=== PATIENT | male | born 1945 | race Caucasian/White ===

== ENCOUNTER → 2019-11-13 11:26 | Outpatient (CLI) | payer MEDICARE, BC, SELFPAY ==
[2019-11-13 12:57] LABS: PSA,Total- Diagnostic 8.26 ng/mL (0.0-4.0)
== END ==
PROVIDERS: PCP Family Medicine; Referring Provider Nurse Practitioner Adult Health; Visit Provider Nurse Practitioner Adult Health
DX: R97.20 Elevated prostate specific antigen [PSA] (principal)
CPT/HCPCS: 36415; 84153

== ENCOUNTER 2020-03-17 15:11 | Emergency (ER) | payer MEDICARE, BC, SELFPAY ==
[2020-03-17 15:12] VITALS: BP 142/86; PULSE 75; RESP 18; TEMP 36.3; O2SAT 98; BMI 23.0
--- NOTE | 2020-03-17 15:31 | CT_ITS ---
STUDY: CT BRAIN WITHOUT CONTRAST REASON FOR EXAM: Male, 75 years old. FALL TODAY, STRUCK HEAD, LAC TO RT SIDE OF FACE, HTN, CHRONIC APHASIA RADIATION DOSAGE (If Supplied By Facility): CTDIvol = ( 44.99 ) mGy, DLP = ( 796.11 ) mGycm TECHNIQUE: Transaxial CT imaging of the brain was performed without administration of intravenous contrast material. Individualized dose optimization techniques were used for this CT. COMPARISON: No relevant priors. FINDINGS: Normal soft tissue structures. Normal calvarium. There is mild cerebral atrophy with widening of the extra-axial spaces and ventricular dilatation. There are areas of decreased attenuation within the white matter tracts of the supratentorial brain, consistent with microvascular disease changes. Normal basal ganglia and thalami. Normal brainstem. Normal cerebellum. There is no intracranial hemorrhage. There are no findings of an acute ischemic infarction. Normal visualized paranasal sinuses. CT/Brain/Head without Contrast IMPRESSION: Chronic involutional changes of the brain. Electronically Signed: Sanket Powell MD at 16:16 EDT , Service support ,
--- NOTE | 2020-03-17 15:32 | ED.VIS.GEN ---
History of Present Illness Chief Complaint: Fall Informant: Patient, Family Onset: Today Current Severity: Mild Maximum Severity: Mild Narrative: Patient presents after fall. Patient lost his balance when getting off the commode and fell into the tub where a drying rack was set up. He has 2 lacerations to the right side of his face and an intraoral laceration. He denies loss of consciousness. states has been acting his normal self. He does have a history of chronic aphasia. - Past Medical History (1) Aphasia Status: Chronic (2) Hypertension Status: Chronic (3) High cholesterol Status: Chronic (4) GERD (gastroesophageal reflux disease) Status: Chronic Past Medical History - Allergies and Home Meds Allergies/Adverse Reactions: Allergies No Known Allergies Allergy (Verified 03/17/20 15:12) Primary Care Physician: Josef Silverman MD [Primary Care Provider] - Prior records reviewed: Yes Lives: Spouse/ Significant Other Review of Systems General: Denies: Chills, Fever Eyes: Denies: Visual changes - bilaterally ENT: Denies: Bilateral ear pain Cardiovascular: Denies: Chest pain Respiratory: Denies: Dyspnea Gastrointestinal: Denies: Abdominal pain, Nausea, Vomiting Genitourinary: Denies: Dysuria Musculoskeletal: Denies: Extremity Pain Skin: Reports: Wounds Neurological: Denies: Headache Hematologic: Denies: Easy bruising, Easy bleeding Allergy: Denies: Uticaria Physical Exam Vital Signs/Narrative: Vital Signs Temp Pulse Resp BP Pulse Ox 03/17/20 15:12 97.4 F L 75 18 142/86 H 98 Inital Vital Signs reviewed: Yes General: Well nourished, Well developed Head: Normocephalic ENT: Moist mucous membranes, - - 2 cm linear superficial laceration to the lateral right eyebrow. 3 cm linear deep abrasion over the right maxilla. Abrasion to the inner surface of the lower lip. Teeth are stable. Neck: Supple, - - No C-spine tenderness. Cardiovascular: Regular rate, Regular rhythm Respiratory: No distress, CTA bilaterally Abdomen: Soft, Nontender Extremities: Nontender Skin: - - Facial lacerations as noted above Neurological: Alert, Oriented x3, Normal Strength, Normal Sensation Psychological: Normal affect Diagnostic/Tx/Re-eval Impressions Brain CT 03/17/20 15:31 IMPRESSION: Chronic involutional changes of the brain. Electronically Signed: Sanket Powell MD at 16:16 EDT , Service support , 03/17/20 15:31 CT Head [Brain/Head without Contrast] [CT] Stat - Medical Decision Making Tetanus shot is up-to-date. The abrasions and superficial laceration on the right side of face are cleansed and sealed with Dermabond. ED Disposition - Plan for ED Patient: Disposition: Home or Assisted Living Diagnosis: Fall, Facial laceration, Intraoral laceration Instructions: ED Laceration Facial Skin Glue, ED Mechanical Fall, ED Laceration Mouth Referrals: Josef Silverman MD [Primary Care Provider] - As Needed
== END 2020-03-17 16:51 | disposition home or self-care (01) ==
PROVIDERS: Emergency Provider Emergency Medicine; PCP Family Medicine
DX: S01.111A Laceration without foreign body of right eyelid and periocular area, initial encounter (principal); S01.512A Laceration without foreign body of oral cavity, initial encounter; S01.81XA Laceration without foreign body of other part of head, initial encounter; I10 Essential (primary) hypertension; K21.9 Gastro-esophageal reflux disease without esophagitis; W26.8XXA Contact with other sharp object(s), not elsewhere classified, initial encounter; Y93.89 Activity, other specified; Y92.002 Bathroom of unspecified non-institutional (private) residence as the place of occurrence of the external cause; Y99.8 Other external cause status
CPT/HCPCS: 12013; 70450; 99282

== ENCOUNTER → 2020-06-03 08:51 | Outpatient (CLI) | payer MEDICARE, BC, SELFPAY ==
[2020-06-03 09:48] LABS: PSA,Total- Diagnostic 7.87 ng/mL (0.0-4.0)
== END ==
PROVIDERS: PCP Family Medicine; Referring Provider Nurse Practitioner Adult Health; Visit Provider Nurse Practitioner Adult Health
DX: R97.20 Elevated prostate specific antigen [PSA] (principal)
CPT/HCPCS: 36415; 84153

== ENCOUNTER 2020-07-11 15:08 | Emergency (ER) | payer MEDICARE, BC, SELFPAY ==
[2020-07-09 09:58] VITALS: BMI 25.9
[2020-07-11 15:09] VITALS: BP 123/88; PULSE 75; RESP 18; TEMP 36.3; O2SAT 96; BMI 20.9
--- NOTE | 2020-07-11 15:28 | CT_ITS ---
STUDY: CT BRAIN WITHOUT CONTRAST REASON FOR EXAM: Male, 75 years old. MECHANICAL FALL IN BATHTUB, LAC TO TOP OF HEAD. Best images. Pt unable to lay head down RADIATION DOSAGE (If Supplied By Facility): CTDIvol = ( 29.71 ) mGy, DLP = ( 604.65 ) mGycm TECHNIQUE: Transaxial CT imaging of the brain was performed without administration of intravenous contrast material. Individualized dose optimization techniques were used for this CT. COMPARISON: Comparison is made with prior study date 03/17/2020. FINDINGS: Normal soft tissue structures. Normal calvarium. There is mild cerebral atrophy with widening of the extra-axial spaces and ventricular dilatation. There are areas of decreased attenuation within the white matter tracts of the supratentorial brain, consistent with microvascular disease changes. Normal basal ganglia and thalami. Normal brainstem. There is mild cerebellar atrophy. There is no intracranial hemorrhage. There are no findings of an acute ischemic infarction. Normal visualized paranasal sinuses. CT/Brain/Head without Contrast IMPRESSION: Chronic involutional changes of the brain. Electronically Signed: Gera Matta MD at 15:55 EST , Service support ,
--- NOTE | 2020-07-11 15:30 | ED.VISSUMM ---
- ER Visit Summary Date of Service: 07/11/20 Chief Complaint: Fall, scalp laceration History of Present Illness: The patient is a 75 M who presents after a fall. He lost his balance and fell in the bathtub. Family member believes that he hit his head on the faucet of the bathtub. No LOC. He claims of no neck pain. He did sustain a laceration to the scalp. Bleeding is controlled. He is on a baby aspirin but no other blood thinning medications. 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 He denies any chest pain, shortness of breath, dizziness or lightheadedness before the fall. Physical Examination: Vital signs reviewed. HEENT exam shows a 7 cm L-shaped scalp laceration to the top part of the scalp. Heart is regular rate and rhythm without murmurs. Lungs are clear to auscultation. Abdomen is soft and nontender. Extremities reveal no edema. Skin exam normal. Neurologic exam is a GCS of 13 where he loses points for his verbal communication which is his baseline but otherwise his neurologic exam is normal. Test Results: CT scan of the head shows chronic changes. Emergency Department Course and Treatment: The patient had laceration repair. The wound was cleansed with chlorhexidine. Lidocaine was used to anesthetize the area. 7 stuart were used to close this wound. He will have these out in 1 week. They will use Tylenol for pain at home. Treatment Plan: [] Disposition: Discharge Impression: Laceration, 7 cm Laceration repair by ED physician This note was generated with [employer] dictation software. It may contain incorrect words, spelling, and punctuation that were not noted in review of the chart prior to signing ED Disposition - Plan for ED Patient: Disposition: Home or Assisted Living Instructions: ED Laceration: All Closures Referrals: Josef Silverman MD [Primary Care Provider] -
[2020-07-11] MEDS: Lidocaine 1% (20 ml mdv) 20 ML Vial INFILT (16:10)
[2020-07-11 16:36] VITALS: BP 146/83; PULSE 74; RESP 18; TEMP 35.5
== END 2020-07-11 16:52 | disposition home or self-care (01) ==
PROVIDERS: Emergency Provider Emergency Medicine; PCP Family Medicine
DX: S01.01XA Laceration without foreign body of scalp, initial encounter (principal); I10 Essential (primary) hypertension; E78.00 Pure hypercholesterolemia, unspecified; Z79.899 Other long term (current) drug therapy; W26.8XXA Contact with other sharp object(s), not elsewhere classified, initial encounter; Y93.E1 Activity, personal bathing and showering; Y92.002 Bathroom of unspecified non-institutional (private) residence as the place of occurrence of the external cause; Y99.8 Other external cause status
CPT/HCPCS: 12002; 70450; 99283

== ENCOUNTER → 2020-07-29 10:53 | Outpatient (CLI) | payer MEDICARE, BC, SELFPAY ==
[2020-07-09 09:58] VITALS: BMI 25.9
[2020-07-11 15:09] VITALS: BMI 20.9
--- NOTE | 2020-07-29 10:54 | MRI_ITS ---
STUDY: MRI BRAIN WITH AND WITHOUT CONTRAST REASON FOR EXAM: Male, 75 years old. DEMENTIA, PARKINSON''S, PPA TECHNIQUE: Standardized multiplanar fat and water weighted pulse sequences were obtained. 14ml IV Dotarem was administered for the contrast portion of the examination. COMPARISON: CT to FINDINGS: There is moderate cerebral atrophy with widening of the extra-axial spaces and ventricular dilatation. There are multiple white matter hyperintensities, distributed throughout the deep white matter tracts of the cerebral hemispheres, consistent with moderate chronic white matter ischemic changes. There is no evidence for recent intracranial ischemia or other cause of cytotoxic edema on diffusion weighted imaging (DWI). Normal T2* images of the brain without demonstrated susceptibility artifact. There is no demonstrated hemosiderin stain. Midbrain iron stores are depleted which can be seen in Parkinson''s disease. Normal bilateral basal ganglia. Normal thalami. There is no extra-axial fluid accumulation. Normal flow voids within the major intracranial circulation suggesting patency by spin echo criteria. Normal venous enhancement. There is no enhancing intra-axial or extra-axial abnormality. Normal sella turcica, pituitary gland, infundibular stalk, optic chiasm and hypothalamus. Normal tectal plate and pineal gland. Normal midbrain, gideon and medulla. Normal cerebellum. Normal basal cisterns. 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 Normal bilateral internal auditory canals. No demonstrated orbital abnormality, within the constraints of a routine brain study. Normal visualized paranasal sinuses. Normal calvarium and skull base. Normal visualized soft tissue structures. Normal visualized upper cervical spine. MRI/Brain W/WO Contrast IMPRESSION: 1. Involutional changes of the brain, as described above. No acute infarct. 2. Midbrain iron stores are depleted which can be seen in Parkinson''s disease. Electronically Signed: Dontae Chow MD at 12:59 EST Tel , Service support ,
[2020-07-29 12:50] LABS: CREATININE FINGERSTICK 0.8 mg/dL (0.70-1.30)
== END ==
PROVIDERS: PCP Family Medicine; Referring Provider Psychiatry & Neurology Neurology; Visit Provider Psychiatry & Neurology Neurology
DX: G20 Parkinson's disease (principal); G31.01 Pick's disease; F02.80 Dementia in other diseases classified elsewhere, unspecified severity, without behavioral disturbance, psychotic disturbance, mood disturbance, and anxiety
CPT/HCPCS: 70553; A9575

== ENCOUNTER → 2020-08-12 09:06 | Outpatient (CLI) | payer MEDICARE, BC, SELFPAY ==
[2020-08-12 10:54] LABS: Vitamin B12 426 pg/mL (211-911)
[2020-08-12 11:06] LABS: Thyroid Stim Hormone (TSH) 1.49 uIU/mL (0.358-3.74)
[2020-08-15 07:07] LABS: Free Kappa Light Chains 17.1 mg/L (3.3-19.4); Free Lambda Light Chains 15.7 mg/L (5.7-26.3)
[2020-08-15 09:51] LABS: Vitamin B1, Thiamine 121.1 nmol/L (66.5-200.0)
== END ==
PROVIDERS: PCP Family Medicine; Referring Provider Psychiatry & Neurology Neurology; Visit Provider Psychiatry & Neurology Neurology
DX: F03.90 Unspecified dementia, unspecified severity, without behavioral disturbance, psychotic disturbance, mood disturbance, and anxiety (principal); G62.9 Polyneuropathy, unspecified; I10 Essential (primary) hypertension
CPT/HCPCS: 36415; 82607; 82746; 83883; 84425; 84443

== ENCOUNTER 2020-09-27 10:47 | Emergency (ER) | payer MEDICARE, BC, SELFPAY ==
[2020-08-22 16:38] VITALS: BMI 25.9
[2020-09-27 10:48] VITALS: BP 151/71; PULSE 96; RESP 16; TEMP 36.6; O2SAT 92; BMI 21.9
--- NOTE | 2020-09-27 11:04 | CT_ITS ---
STUDY: CT BRAIN WITHOUT CONTRAST REASON FOR EXAM: Male, 75 years old. Fall RADIATION DOSAGE (If Supplied By Facility): CTDIvol = ( 34.70 ) mGy, DLP = ( 656.48 ) mGycm TECHNIQUE: Transaxial CT imaging of the brain was performed without administration of intravenous contrast material. Individualized dose optimization techniques were used for this CT. COMPARISON: Comparison is made with prior study dated 07/11/2020. FINDINGS: Normal soft tissue structures. Normal calvarium. There is mild cerebral atrophy with widening of the extra-axial spaces and ventricular dilatation. There are areas of decreased attenuation within the white matter tracts of the supratentorial brain, consistent with microvascular disease changes. Normal basal ganglia and thalami. Normal brainstem. There is mild cerebellar atrophy. There is no intracranial hemorrhage. There are no findings of an acute ischemic infarction. Atherosclerotic calcification of the vertebral arteries and cavernous portions of the internal carotid arteries bilaterally. Normal visualized paranasal sinuses. CT/Brain/Head without Contrast IMPRESSION: Chronic involutional changes of the brain. Electronically Signed: Gera Matta MD at 11:54 EDT , Service support ,
--- NOTE | 2020-09-27 11:51 | ED.VISSUMM ---
- ER Visit Summary Date of Service: 09/27/20 Chief Complaint: Fall History of Present Illness: The patient is a [address] Silverman. He has a history of Parkinson's disease and balance problems. Reports that this morning his walker tipped and he fell and hit his head on the doorway. He did not have a loss of consciousness. He is not on anticoagulants. His tetanus is up-to-date. Patient denies any neck, back, shoulder, wrist, or hip pain. His history is limited by he severe expressive aphasia. Physical Examination: Vitals: Stable. Afebrile. Head: 3 cm laceration to the left occipital region. No active bleeding Neck: No vertebral tenderness. Full ROM without difficulty. Cleared by NEXUS criteria. Back: No vertebral tenderness. General: A&O x 3. NAD. Cardiovascular exam: Regular rate and rhythm, no murmur, rub or gallop. Respiratory exam: Chest nontender. No crepitus. Clear to auscultation bilaterally. No wheezes or stridor. Abdominal exam: Soft, nontender, nondistended, normal bowel sounds. No pain in RUQ or LUQ specifically. No peritoneal signs. Extremity: Atraumatic. No pain with range of motion. Test Results: Clinical Impression(s) from Imaging Studies Brain CT 09/27/20 11:04 IMPRESSION: Chronic involutional changes of the brain. Electronically Signed: Gera Matta MD at 11:54 EDT , Service support , Emergency Department Course and Treatment: Patient refused pain medications. He had his wound anesthetized and repaired. He tolerated this well. Treatment Plan: Patient be discharged instructions follow-up his primary care physician in 7 to 10 days for staple removal. Return to the emergency department for any worsening symptoms. Disposition: To home in improved and stable condition. Impression: 1. Fall. 2. Scalp laceration, 3 cm, repaired. Procedure note: Wound was cleansed with chlorhexidine soap. Anesthetized with 1% lidocaine without epinephrine. Copiously irrigated with normal saline. Wound was explored there is no foreign material present. It was closed with 4 stuart. The patient tolerated it well. This note was generated with Inway Studiosation software. It may contain incorrect words, spelling, and punctuation that were not noted in review of the chart prior to signing ED Disposition - Plan for ED Patient: Disposition: Home or Assisted Living Instructions: ED Laceration: All Closures Referrals: Josef Silverman MD [Primary Care Provider] - 7 Days for suture removal
[2020-09-27] MEDS: Lidocaine 1% (20 ml mdv) 20 ML Vial INFILT (12:17)
== END 2020-09-27 12:31 | disposition home or self-care (01) ==
LOC: ED 11:36
PROVIDERS: Emergency Provider Emergency Medicine; PCP Family Medicine
DX: S01.01XA Laceration without foreign body of scalp, initial encounter (principal); G20 Parkinson's disease; I10 Essential (primary) hypertension; W01.198A Fall on same level from slipping, tripping and stumbling with subsequent striking against other object, initial encounter; Y93.01 Activity, walking, marching and hiking; Y92.009 Unspecified place in unspecified non-institutional (private) residence as the place of occurrence of the external cause; Y99.8 Other external cause status
CPT/HCPCS: 12002; 70450; 99284

== ENCOUNTER 2020-10-18 10:54 | Emergency (ER) | payer MEDICARE, BC, SELFPAY ==
[2020-10-18] VITALS (10 sets, daily range): BP systolic 111–136; BP diastolic 63–77; PULSE 56–99; RESP 15–22; TEMP 36.3–36.6; O2SAT 96–98; BMI 25.9; BMI 22.3
--- NOTE | 2020-10-18 11:02 | CT_ITS ---
STUDY: CT BRAIN WITHOUT CONTRAST REASON FOR EXAM: Male, 75 years old. altered mental status RADIATION DOSAGE (If Supplied By Facility): CTDIvol = ( 44.99 ) mGy, DLP = ( 1862.18 ) mGycm TECHNIQUE: Transaxial CT imaging of the brain was performed without administration of intravenous contrast material. Individualized dose optimization techniques were used for this CT. COMPARISON: CT head 09/27/2020 FINDINGS: Normal soft tissue structures. Normal calvarium. There is mild cerebral atrophy with widening of the extra-axial spaces and ventricular dilatation. There are areas of decreased attenuation within the white matter tracts of the supratentorial brain, consistent with microvascular disease changes. Normal basal ganglia and thalami. Normal brainstem. Normal cerebellum. There is no intracranial hemorrhage. There are no findings of an acute ischemic infarction. Normal visualized paranasal sinuses. CT/Brain/Head without Contrast IMPRESSION: Chronic involutional changes of the brain. Electronically Signed: Sally Sanches MD at 11:51 EDT Tel , Service support ,
--- NOTE | 2020-10-18 11:02 | EKG12_ITS ---
Test Reason : OD Blood Pressure : / mmHG Vent. Rate : 063 BPM Atrial Rate : 063 BPM P-R Int : 192 ms QRS Dur : 096 ms QT Int : 394 ms P-R-T Axes : 055 012 047 degrees QTc Int : 403 ms Normal sinus rhythm Normal ECG Confirmed by PEGGY ROGEL MD ([id number]), development editor ANGELICA RODRIGUEZ ([id number]) on 10/22/2020 9:31:09 AM Referred By: LLOYD Confirmed By:PEGGY ROGEL MD
--- NOTE | 2020-10-18 11:14 | EX.ED.VIS.PS ---
HPI HPI - Psych History of Present Illness Chief Complaint: Overdose Informant: patient, spouse/S.O. and EMS Onset/Context/Timing Onset: Today Narrative Narrative: Patient brought in by EMS after intentional ingestion at home. Patient has a history of dementia, Parkinson's, and expressive aphasia. Patient's came home around 945 after a trip to the grocery store and found the patient more difficult to arouse sitting in his chair. She did find a kitchen cabinet open where they keep the medications. Patient reportedly was able to tell her that he had taken several pills in an attempt to hurt himself. At this time we do not know exactly how many pills were taken and what the medications were. believes he may have ingested 6 to 8 tablets of Tylenol. He is also prescribed amlodipine, atorvastatin, omeprazole, aspirin, Proscar, Mobic. [facility] Medical History (Updated 10/18/20 @ 11:[address] Mona Allen MD) Arthritis Cataracts, bilateral Dementia GERD (gastroesophageal reflux disease) High cholesterol Hypertension Parkinsonism Primary progressive aphasia Prostate disorder Seasonal allergies Home Medications amlodipine 5 mg tablet 5 mg PO DAILY tab 07/05/20 [History Last Taken Unknown] aspirin 81 mg tablet,delayed release 81 mg PO DAILY tab 07/05/20 [History Last Taken Unknown] atorvastatin 10 mg tablet 10 mg PO DAILY tab 07/05/20 [History Last Taken Unknown] finasteride 5 mg tablet 5 mg PO DAILY 07/05/20 [History Last Taken Unknown] meloxicam 15 mg tablet 15 mg PO DAILY 07/05/20 [History Last Taken Unknown] omeprazole magnesium 20 mg tablet,delayed release 20 mg PO DAILY tab 07/05/20 [History Last Taken Unknown] tamsulosin 0.4 mg capsule 0.4 mg PO DAILY cap 07/05/20 [History Last Taken Unknown] donepezil 10 mg tablet 10 mg PO QHS #30 tablet 09/30/20 [Rx Last Taken Unknown] donepezil 5 mg tablet 5 mg PO QHS #30 tablet 09/30/20 [Rx Last Taken Unknown] carbidopa 25 mg-levodopa 100 mg tablet 1 tab PO TID #90 tab 10/15/20 [Rx Last Taken Unknown] Allergy/AdvReac Type Severity Reaction Status Date / Time No Known Allergies Allergy Verified 09/30/20 14:45 Family History Father Alcoholism Grandfather Alcoholism Mother CVA (cerebral vascular accident), Onset Age: 84 Other Arthritis Hypertension Surgical History History of tonsillectomy Social History Smoking Status: Former smoker how long ago did patient quit smoking: Quit in 1976 alcohol intake: current alcohol intake frequency: holidays/special occasions only substance use type: does not use ROS ROS ED Review of Systems ROS Unobtainable: other Details: Patient with expressive aphasia at baseline. He is able to answer okay or not to simple questions. Constitutional Constitutional ED: Denies chills or fever(s) Eyes Eyes: Denies change in vision ENT ENT ED: Denies sore throat Cardiovascular Cardiovascular: Denies chest pain Respiratory/Chest Respiratory/Chest: Denies cough or dyspnea Gastrointestinal Gastrointestinal: Denies abdominal pain, diarrhea, nausea or vomiting Genitourinary Genitourinary ED: Denies dysuria Musculoskeletal Musculoskeletal: Denies back pain Integumentary Denies rash Neurologic Neurologic: Denies headache(s) or weakness Psychiatric Psychiatric: Denies anxiety or depression Endocrine Endocrinology: Denies polydipsia or polyuria Allergic/Immunologic Allergic/Immunologic ED: Denies urticaria EXAM Physical Exam Const Vital Signs: 10/18/20 10:55 Temperature 97.4 F L Temperature Source Temporal Pulse Rate 60 Respiratory Rate 15 Blood Pressure 125/69 H Blood Pressure Mean 87 Pulse Ox 97 Oxygen Delivery Method Room Air Positive well nourished and well developed General Appearance ED: well developed HEENT Reports normocephalic and head/scalp atraumatic Eyes PERRL and EOMs intact bilaterally Neck supple Chest Wall inspection of chest normal and palpation of chest normal Resp normal respiratory effort and clear to auscultation bilaterally Cardio regular rate and regular rhythm GI normal to inspection, nondistended, normoactive bowel sounds and non-tender Palpation: soft Extremity normal to inspection Neuro Sensorium / Orientation: alert Motor Exam: strength 5/5 throughout Psych Psych Narrative: Flat affect. Reportedly did tell that this was an attempt to hurt himself. Skin no rashes or lesions noted Discharge Plan Triage Chief Complaint: Overdose ED Provider: Mona Allen Dx/Rx/DC Orders Prescriptions: No Action amlodipine 5 mg tablet 5 mg PO DAILY RF: 0 omeprazole magnesium 20 mg tablet,delayed release (DR/EC) 20 mg PO DAILY RF: 0 atorvastatin 10 mg tablet 10 mg PO DAILY RF: 0 tamsulosin 0.4 mg capsule 0.4 mg PO DAILY RF: 0 aspirin 81 mg tablet,delayed release (DR/EC) 81 mg PO DAILY RF: 0 finasteride 5 mg tablet 5 mg PO DAILY RF: 0 meloxicam 15 mg tablet 15 mg PO DAILY RF: 0 donepezil 5 mg tablet 5 mg PO QHS Qty: 30 RF: 0 donepezil 10 mg tablet 10 mg PO QHS Qty: 30 RF: 2 carbidopa-levodopa [Sinemet] 25-100 mg tablet 1 tab PO TID Qty: 90 RF: 2 Primary Care Provider: Josef Silverman
[2020-10-18 11:19] LABS: Absolute Lymphocyte Count 0.91 X10^3/uL (0.83-4.51); Absolute Neutrophil Count 5.3 X10^3/uL (2.0-7.7); Basophil# 0.04 X10^3/uL; Basophil% 0.6 % (0-1); Eosinophil# 0.03 X10^3/uL; Eosinophils% 0.4 % (0-5); Hematocrit 37.5 % (40-54); Hemoglobin 12.3 g/dL (13.0-16.5); Lymphocyte # 0.91 X10^3/ul (0.83-4.51); Lymphocyte % 13.5 % (19-41); Mean Corp Hgb Conc 32.8 g/dL (32-36); Mean Corpuscular Hgb 32.1 pg (27.0-32.0); Mean Corpuscular Volume 97.9 fL (80-94); Mean Platelet Vol. 9.8 fl (6.2-12.0); Monocyte# 0.48 X10^3/uL; Monocyte% 7.1 % (0-10); NRBC Flagged by Analyzer 0 % (0-5); Neutrophil # 5.25 X10^3/uL (2.7-7.7); Neutrophil % 78.1 % (47-70); Platelet Count 155 K/mm3 (150-450); RBC Distribution Width CV 12.1 % (11.6-14.6); RBC Distribution Width SD 43.6 fl (35.1-43.9); Red Blood Count 3.83 M/mm3 (4.6-6.2); White Blood Count 6.7 K/mm3 (4.4-11.0)
--- NOTE | 2020-10-18 11:30 | CM.ED ---
SOCIAL WORK ASSESSMENT Referral Source: Dr. Allen Reason for Consult: Overdose-intentional, suicidal Chief Compliant: Patient presents to [facility] ER by squad after intentional overdose. states patient reported intent to harm self. unsure what patient took, possibly 6-8 tabs of Tylenol. Marital/Social History: . Patient with history of PPA-Primary Progressive Aphasia, Parkinson's and dementia. Living Situation: Home with Support/Resources: , family History: [employer] Education and Employment History: Master's Degree, retired Mental Health Treatment/History: Depression. reports not treated. Triggers/Stressors: declining health Coping Skills: None Abuse Issues: denies any history of emotional, physical or sexual trauma for patient. Substance Abuse History: reports patient used to drink heavily. Patient quit drinking a year ago. Risk to Self/Others: Suicidal- states patient has been stating, I wish I was . states son's [id number] committed suicide in May. I think he's been thinking a lot about that. Patient reported intentional overdose to harm self. Homicidal- Patient denies any homicidal ideation. Mental Status Exam: Orientation- Alert Memory- imparied ? Appearance/General Behavior: clean/appropriate, calm Mood/Affect: flat, depressed Communication Pattern: expressive aphasia Judgment: poor ? Assessment: Met with patient and . Patient with history of Parkinson's, aphasia, and dementia. states left patient for about an hour to run to the store and when she returned patient was more difficult to arouse sitting in chair. reports the cabinet in which medications are kept was opened. Patient did inform took pills to harm self. unsure of what patient ingested. reports patient does require some assistance and uses a walker for assistance with ambulation. Patient require assistance getting in the shower and is able to dress, feed, and wash self. Collaboration with Dr. Allen, plan for referral to val-psych. Dr. Allen to discuss with Poison Control. This worker to facilitate placement once patient is medically cleared. ? Plan: Referral for val-psych Maikel Reyes MSW, THREAD MILLING MACHINE SET UP OPERATOR
[2020-10-18 11:36] LABS: ALB/GLOB Ratio 1.4 RATIO (0.9-2.4); AST(SGOT) 15 U/L (15-37); Alanine Aminotransfer ALT/SGPT 8 U/L (16-61); Albumin, Serum 3.8 g/dL (3.2-5.0); Alkaline Phosphatase 86 U/L (45-117); Anion Gap 4 (5-15); BUN 20 mg/dL (7-18); Calcium,Total 8.8 mg/dL (8.5-10.1); Chloride 107 mmol/L (98-107); Creatinine, Serum 0.83 mg/dL (0.70-1.30); EST Glomerular Filtration Rate 95 mL/min (>60); Est Glom Filt Rate - Afr Amer 115 mL/min (>60); Estimated Creatinine Clearance 77.75 ml/min; Globulin 2.7 g/dL (2.2-4.2); Glucose 109 mg/dL (74-106); Protein, Total 6.5 g/dL (6.4-8.2); Sodium Level 140 mmol/L (136-145)
[2020-10-18 12:14] LABS: Acetaminophen (Tylenol) Level < 2.0 ug/mL (10.0-30.0); Alcohol, Blood (Medical)-Serum < 3.0 mg/dL; Salicylate < 1.7 mg/dL (2.8-20.0)
[2020-10-18 14:17] LABS: Acetaminophen (Tylenol) Level < 2.0 ug/mL (10.0-30.0)
--- NOTE | 2020-10-18 14:47 | ED.RN ---
dr. hurst aware no urine at this time, no new orders given.
--- NOTE | 2020-10-18 15:22 | CM.ED ---
SOCIAL WORK Call to [facility]. Discussed referral. Intake reports val-psych beds available. This worker to fax referral once medically cleared. Maikel Reyes, AUTO GARAGE ATTENDANT, DUPLICATOR PUNCH OPERATOR
[2020-10-18 17:31] LABS: Amphetamine Urine VISTA NEGATIVE (<1000 ng/mL); Barbiturate Urine VISTA NEGATIVE (< 200 ng/mL); Benzodiazepine Urine VISTA NEGATIVE (< 200 ng/mL); Cocaine Urine VISTA NEGATIVE (< 300 ng/mL); Ecstacy Urine VISTA NEGATIVE (< 500 ng/mL); Methadone Urine VISTA NEGATIVE (< 300 ng/mL); PCP Urine VISTA NEGATIVE (< 25 ng/mL); THC Urine VISTA NEGATIVE (< 50 ng/mL); Vista UDS pH Range 7
--- NOTE | 2020-10-18 18:20 | CM.ED ---
SOCIAL WORK Referral faxed and called to [facility]. Pending review at this time. Dr. Gunderson updated on need for COVID-19 test. Maikel Reyes, DIRECTOR OF HEALTHCARE SYSTEMS, ORDERING MACHINE OPERATOR
[2020-10-18] MEDS: Haloperidol Lactate 5 MG/ML Vial IM (18:38)
--- NOTE | 2020-10-18 18:39 | ED.RN ---
PT BECAME AGITATED, PULLED IV OUT, REMOVED BP CUFF, ATTEMPTED TO GET OUT OF BED. PROVIDER ORDERED HALDOL, PT GIVEN COOKIES.
--- NOTE | 2020-10-18 19:36 | CM.ED ---
SOCIAL WORK Call from [place] with [facility]. Patient accepted to Dr. Butler to [address]. Nurse to call report to [phone]. [place] to set up transport. Maikel Reyes, COYOTE HUNTER, CEMENT FINISHER HELPER
--- NOTE | 2020-10-18 19:58 | CM.ED ---
SOCIAL WORK in room and updated on patient's acceptance to [facility]. Maikel Reyes, LEARNING DESIGN SPECIALIST, CUSTOM FEED MILL OPERATOR HELPER
--- NOTE | 2020-10-18 20:03 | ED.RN ---
CALLED [facility], THE ETA WOULD BE 90 MINUTES.
== END 2020-10-18 22:25 ==
LOC: ED 11:17
PROVIDERS: Emergency Provider Emergency Medicine; PCP Family Medicine
DX: T50.902A Poisoning by unspecified drugs, medicaments and biological substances, intentional self-harm, initial encounter (principal); G20 Parkinson's disease; F02.80 Dementia in other diseases classified elsewhere, unspecified severity, without behavioral disturbance, psychotic disturbance, mood disturbance, and anxiety; M19.90 Unspecified osteoarthritis, unspecified site; K21.9 Gastro-esophageal reflux disease without esophagitis; E78.00 Pure hypercholesterolemia, unspecified; I10 Essential (primary) hypertension; Z79.899 Other long term (current) drug therapy; Z87.891 Personal history of nicotine dependence
CPT/HCPCS: 70450; 80053; 80307; 80329; 82077; 85025; 87426; 93005; 96372; 99285; A4216; G0480

== ENCOUNTER 2021-06-09 11:25 | Emergency (ER) | payer MEDICARE, BC, SELFPAY ==
[2021-06-09 11:26] VITALS: BP 166/79; PULSE 77; RESP 16; TEMP 36.8; O2SAT 97; BMI 25.0
--- NOTE | 2021-06-09 12:04 | ED.VIS.FALL ---
HPI HPI - Fall History of Present Illness Chief Complaint: Fall Informant: patient Occured/Mechanism Occurred: Today Mechanism/Context: Yes same level fall and Yes trip Pain/Injury Location: Forehead Pain Location: head Worsened by: Nothing Relieved by: Nothing Associated Symptoms Associated Symptoms: Negative for Parasthesias, Weakness, Loss of function and Loss of consciousness Narrative Narrative: Patient presents after a fall that occurred today. Patient has a history of Parkinson's disease and fell forward. Patient hit his head. Patient denies any loss of consciousness. Patient denies any paresthesias or weakness. Patient denies taking any anticoagulants. Patient denies any neck or back pain. Patient denies any other injuries. Family states the patient's last tetanus was within 5 years. Patient denies any visual changes. Patient denies any nausea or vomiting. Tetanus Immunization: <5 years [facility] Medical History Arthritis Cataracts, bilateral Dementia Dementia in other diseases classified elsewhere without behavioral disturbance Essential (primary) hypertension Gastro-esophageal reflux disease without esophagitis GERD (gastroesophageal reflux disease) Hyperlipidemia, unspecified Major depressive disorder, recurrent, unspecified Parkinsonism Primary progressive aphasia Prostate disorder Seasonal allergies Home Medications amlodipine 5 mg tablet 5 mg PO DAILY tab 07/05/20 [History Last Taken Unknown] aspirin 81 mg tablet,delayed release 81 mg PO DAILY tab 07/05/20 [History Last Taken Unknown] atorvastatin 10 mg tablet 10 mg PO DAILY tab 07/05/20 [History Last Taken Unknown] finasteride 5 mg tablet 5 mg PO DAILY 07/05/20 [History Last Taken Unknown] meloxicam 15 mg tablet 15 mg PO DAILY 07/05/20 [History Last Taken Unknown] omeprazole magnesium 20 mg tablet,delayed release 20 mg PO DAILY tab 07/05/20 [History Last Taken Unknown] tamsulosin 0.4 mg capsule 0.4 mg PO DAILY cap 07/05/20 [History Last Taken Unknown] donepezil 10 mg tablet 10 mg PO QHS #30 tablet 12/30/20 [Rx Last Taken Unknown] escitalopram oxalate 10 mg tablet 10 mg PO QHS tab 12/30/20 [History Last Taken Unknown] loperamide 2 mg capsule 2 mg PO .COMPLEX PRN 12/30/20 [History Last Taken Unknown] loperamide 2 mg capsule 4 mg PO .COMPLEX PRN cap 12/30/20 [History Last Taken Unknown] magnesium hydroxide 400 mg/5 mL oral suspension 30 ml PO DAILY PRN ml 12/30/20 [History Last Taken Unknown] mirtazapine 15 mg tablet 15 mg PO QHS tab 12/30/20 [History Last Taken Unknown] acetaminophen 325 mg capsule 650 mg PO ONCE PRN cap 03/04/21 [History Last Taken Unknown] acetaminophen 325 mg capsule 650 mg PO ONCE PRN cap 03/04/21 [History Last Taken Unknown] loratadine 10 mg tablet 10 mg PO DAILY 03/04/21 [History Last Taken Unknown] vibegron 75 mg tablet 75 mg PO DAILY tab 03/04/21 [History Last Taken Unknown] carbidopa 25 mg-levodopa 100 mg tablet 2 tab PO .QID #240 tab 04/03/21 [Rx Last Taken Unknown] Allergy/AdvReac Type Severity Reaction Status Date / Time No Known Allergies Allergy Verified 06/09/21 11:37 Family History Father Alcoholism Grandfather Alcoholism Mother CVA (cerebral vascular accident), Onset Age: 84 Other Arthritis Hypertension Surgical History History of tonsillectomy Social History Smoking Status: Former smoker how long ago did patient quit smoking: Quit in 1976 alcohol intake: current alcohol intake frequency: holidays/special occasions only substance use type: does not use ROS ROS ED Constitutional Constitutional ED: Denies chills or fever(s) Eyes Eyes: Denies blurry vision or change in vision ENT ENT ED: Reports rhinorrhea; Denies sore throat Cardiovascular Cardiovascular: Denies chest pain or palpitations Respiratory/Chest Respiratory/Chest: Denies cough or dyspnea Gastrointestinal Gastrointestinal: Denies nausea or vomiting Genitourinary Genitourinary ED: Denies dysuria or hematuria Musculoskeletal Musculoskeletal: Denies back pain or neck pain Integumentary Denies abscess or rash Neurologic Neurologic: Denies headache(s) or weakness Allergic/Immunologic Allergic/Immunologic ED: Denies mouth swelling or urticaria EXAM Physical Exam Const Vital Signs: 06/09/21 11:26 06/09/21 13:30 Temperature 98.2 F Temperature Source Temporal Pulse Rate 77 Respiratory Rate 16 Blood Pressure 166/79 H 158/77 H Blood Pressure Mean 108 104 Pulse Ox 97 Oxygen Delivery Method Room Air Positive well nourished and well developed General Appearance ED: well developed HEENT Reports normocephalic HEENT Narrative: There is a stellate laceration over the forehead in the midline. There is no bony crepitance or step-off. There are no foreign bodies noted. There is no active bleeding noted. There is moderate gapping of the wound margins. Eyes PERRL and EOMs intact bilaterally Neck full ROM and supple Neuro CN's II-XII intact bilaterally, moves all extremities, no focal motor deficits and no sensory deficits noted Sensorium / Orientation: alert Psych mental status grossly normal MDM MDM MDM Narrative Medical decision making narrative: The wound was cleaned and irrigated with copious amounts of normal saline. The wound was anesthetized with 1% lidocaine with epinephrine locally. The wound was closed with 4 simple interrupted #4-0 nylon sutures under sterile technique. Patient tolerated the procedure well. Bacitracin dressing was applied. Patient and family were instructed to follow-up with his primary care physician for wound recheck and suture removal in 5 days. Patient and family understood and were agreeable with the plan. All questions were answered. Discharge Plan Triage Chief Complaint: Fall ED Provider: Emilio Hurt Dx/Rx/DC Orders Clinical Impression: Forehead laceration Instructions: ED Laceration: All Closures Prescriptions: No Action amlodipine 5 mg tablet 5 mg PO DAILY RF: 0 omeprazole magnesium 20 mg tablet,delayed release (DR/EC) 20 mg PO DAILY RF: 0 atorvastatin 10 mg tablet 10 mg PO DAILY RF: 0 tamsulosin 0.4 mg capsule 0.4 mg PO DAILY RF: 0 aspirin 81 mg tablet,delayed release (DR/EC) 81 mg PO DAILY RF: 0 finasteride 5 mg tablet 5 mg PO DAILY RF: 0 meloxicam 15 mg tablet 15 mg PO DAILY RF: 0 escitalopram oxalate 10 mg tablet 10 mg PO QHS RF: 0 loperamide 2 mg capsule 4 mg PO .COMPLEX PRNRF: 0 loperamide 2 mg capsule 2 mg PO .COMPLEX PRNRF: 0 magnesium hydroxide [Milk of Magnesia] 400 mg/5 mL suspension 30 ml PO DAILY PRNRF: 0 mirtazapine 15 mg tablet 15 mg PO QHS RF: 0 donepezil 10 mg tablet 10 mg PO QHS Qty: 30 RF: 2 loratadine [Claritin] 10 mg tablet 10 mg PO DAILY RF: 0 Gemtesa 75 mg tablet 75 mg PO DAILY RF: 0 acetaminophen [Tylenol] 325 mg capsule 650 mg PO ONCE PRNRF: 0 acetaminophen [Tylenol] 325 mg capsule 650 mg PO ONCE PRNRF: 0 carbidopa-levodopa [Sinemet] 25-100 mg tablet 2 tab PO .QID Qty: 240 RF: 2 Primary Care Provider: Josef Silverman Referrals: Josef Silverman MD [Primary Care Provider] - 5 Days for suture removal Disposition Disposition: Home, Self Care
[2021-06-09] MEDS: Lidocaine 1% /Epi 1:100 (20ml) 20 ML Vial INFILT (12:21)
[2021-06-09 13:30] VITALS: BP 158/77
== END 2021-06-09 14:23 | disposition home or self-care (01) ==
PROVIDERS: Emergency Provider Emergency Medicine; PCP Family Medicine; Visit Provider Emergency Medicine
DX: S01.81XA Laceration without foreign body of other part of head, initial encounter (principal); G31.83 Neurocognitive disorder with Lewy bodies; F02.80 Dementia in other diseases classified elsewhere, unspecified severity, without behavioral disturbance, psychotic disturbance, mood disturbance, and anxiety; E78.5 Hyperlipidemia, unspecified; I10 Essential (primary) hypertension; Z87.891 Personal history of nicotine dependence; W01.0XXA Fall on same level from slipping, tripping and stumbling without subsequent striking against object, initial encounter; Y93.9 Activity, unspecified; Y99.9 Unspecified external cause status; Y92.9 Unspecified place or not applicable; M19.90 Unspecified osteoarthritis, unspecified site; K21.9 Gastro-esophageal reflux disease without esophagitis; Z79.899 Other long term (current) drug therapy; Z79.82 Long term (current) use of aspirin
CPT/HCPCS: 12013; 99285

== ENCOUNTER 2021-06-26 04:36 | Emergency (ER) | payer MEDICARE, BC, SELFPAY ==
[2021-06-26 04:38] VITALS: BP 151/75; PULSE 81; RESP 16; TEMP 36.2; O2SAT 96; BMI 24.9
[2021-06-26 04:41] VITALS: BP 151/75; PULSE 81; RESP 18; TEMP 36.2; O2SAT 96; BMI 24.9
--- NOTE | 2021-06-26 04:46 | EDS_ITS ---
HPI HPI - Fall History of Present Illness Chief Complaint: Head Injury Informant: patient, family and EMS Pain/Injury Pain Location: head Current Severity: Gone Maximum Severity: Mild Narrative Narrative: History significantly limited in this patient with significant dementia presenting from assisted living after a fall. Family member states she did not witness it since she does not live with him, however he does not ambulate well on his own since he has Parkinson's, and he gets up out of bed and attempts to walk on his own not infrequently, which is what staff said he did tonight, he does not recall the fall. He denies pain anywhere. [facility] Medical History Arthritis Cataracts, bilateral Dementia Dementia in other diseases classified elsewhere without behavioral disturbance Essential (primary) hypertension Gastro-esophageal reflux disease without esophagitis GERD (gastroesophageal reflux disease) Hyperlipidemia, unspecified Major depressive disorder, recurrent, unspecified Parkinsonism Primary progressive aphasia Prostate disorder Seasonal allergies Home Medications amlodipine 5 mg tablet 5 mg PO DAILY tab 07/05/20 [History Last Taken Unknown] aspirin 81 mg tablet,delayed release 81 mg PO DAILY tab 07/05/20 [History Last Taken Unknown] atorvastatin 10 mg tablet 10 mg PO DAILY tab 07/05/20 [History Last Taken Unknown] finasteride 5 mg tablet 5 mg PO DAILY 07/05/20 [History Last Taken Unknown] meloxicam 15 mg tablet 15 mg PO DAILY 07/05/20 [History Last Taken Unknown] omeprazole magnesium 20 mg tablet,delayed release 20 mg PO DAILY tab 07/05/20 [History Last Taken Unknown] tamsulosin 0.4 mg capsule 0.4 mg PO DAILY cap 07/05/20 [History Last Taken Unknown] donepezil 10 mg tablet 10 mg PO QHS #30 tablet 12/30/20 [Rx Last Taken Unknown] escitalopram oxalate 10 mg tablet 10 mg PO QHS tab 12/30/20 [History Last Taken Unknown] loperamide 2 mg capsule 2 mg PO .COMPLEX PRN 12/30/20 [History Last Taken Unknown] loperamide 2 mg capsule 4 mg PO .COMPLEX PRN cap 12/30/20 [History Last Taken Unknown] magnesium hydroxide 400 mg/5 mL oral suspension 30 ml PO DAILY PRN ml 12/30/20 [History Last Taken Unknown] mirtazapine 15 mg tablet 15 mg PO QHS tab 12/30/20 [History Last Taken Unknown] acetaminophen 325 mg capsule 650 mg PO ONCE PRN cap 03/04/21 [History Last Taken Unknown] acetaminophen 325 mg capsule 650 mg PO ONCE PRN cap 03/04/21 [History Last Taken Unknown] loratadine 10 mg tablet 10 mg PO DAILY 03/04/21 [History Last Taken Unknown] vibegron 75 mg tablet 75 mg PO DAILY tab 03/04/21 [History Last Taken Unknown] carbidopa 25 mg-levodopa 100 mg tablet 2 tab PO .QID #240 tab 04/03/21 [Rx Last Taken Unknown] Allergy/AdvReac Type Severity Reaction Status Date / Time No Known Allergies Allergy Verified 06/09/21 11:37 Family History Father Alcoholism Grandfather Alcoholism Mother CVA (cerebral vascular accident), Onset Age: 84 Other Arthritis Hypertension Surgical History History of tonsillectomy Social History Smoking Status: Former smoker how long ago did patient quit smoking: Quit in 1976 alcohol intake: current alcohol intake frequency: holidays/special occasions only substance use type: does not use ROS ROS ED Review of Systems ROS Unobtainable: due to mental status Eyes Eyes: Denies change in vision or diplopia ENT ENT ED: Denies ear pain, epistaxis or facial pain Cardiovascular Cardiovascular: Denies chest pain Respiratory/Chest Respiratory/Chest: Denies dyspnea Gastrointestinal Gastrointestinal: Denies nausea or vomiting Musculoskeletal Musculoskeletal: Denies back pain, extremity pain or neck pain Integumentary Reports laceration Neurologic Neurologic: Denies headache(s) EXAM Physical Exam Const Vital Signs: 06/26/21 04:38 06/26/21 04:41 06/26/21 04:42 Temperature 97.1 F L 97.1 F L Temperature Source Temporal Temporal Pulse Rate 81 81 Respiratory Rate 16 18 Respiratory Effort Normal Respiratory Depth Normal Respiratory Pattern Normal Blood Pressure 151/75 H 151/75 H Blood Pressure Mean 100 100 Pulse Ox 96 96 Oxygen Delivery Method Room Air Room Air Room Air Positive well nourished and well developed General Appearance ED: well developed and NAD HEENT Reports nasal mucous membranes and turbinates normal HEENT Narrative: Linear full-thickness laceration right frontoparietal scalp without crepitance, depression, hematoma, significant tenderness. Face and Sinus: Negative for facial tenderness Eyes PERRL and EOMs intact bilaterally Visual Acuity: other Other Details: no entrapment or pain with extraocular movements Neck full ROM and supple General: Negative for tenderness Chest Wall inspection of chest normal and palpation of chest normal Chest: symmetrical chest wall rise; Negative for crepitus or tenderness Resp normal respiratory effort and clear to auscultation bilaterally Percussion: other equal BS bilat Cardio no murmurs Rate: regular rate Rhythm: regular rhythm GI normal to inspection, nondistended, normoactive bowel sounds, soft to palpation and non-tender Back/Spine normal ROM and normal to inspection Cervical Spine: Negative for cervical spine tenderness Thoracic Spine / Upper Back: Negative for thoracic spinal tenderness Lumbar Spine / Lower Back: Negative for lumbar spinal tenderness Extremity normal to inspection and full ROM General Extremety ED: Negative for tenderness Neuro CN's II-XII intact bilaterally, moves all extremities, no focal motor deficits and no sensory deficits noted Neela Coma Scale: document GCS findings Spontaneous Obeys Commands Oriented 15 Sensorium / Orientation: awake, alert and oriented to person; Negative for oriented to place or oriented to time Psych mental status grossly normal and thought process normal Skin Skin Narrative: 5 cm linear clean right frontoparietal scalp laceration full- thickness just into subcutaneous tissue, does not penetrate down to the galea. No active bleeding. Lesions: no lesions Rashes: no rashes MDM MDM MDM Narrative Medical decision making narrative: Patient was sent for CT imaging of the head, it was negative for any acute injury. His scalp laceration was repaired, and he will be transferred back to assisted living with instruction to have stuart removed in approximately 5 days. Radiography Diagnostic Testing: Clinical Impression(s) from Imaging Studies Brain CT 06/26/21 04:46 IMPRESSION: 1. Small vessel ischemic/degenerative changes. 2. Cerebral atrophy. 3. No demonstrated acute intracranial process. Electronically Signed: Edgardo Jeffrey MD at 5:41 EST , Service support , Procedures Lacerations scalp: Length: 5 cm Depth: Sub Q Shape: Linear Prep: Sterile Conditions and Chlorhexadine Laceration repair: Lidocaine with epi (topical LET) Number of Sutures/Kinsman: 4 (skin stuart) Discharge Plan Triage Chief Complaint: Head Injury ED Provider: Guanaco Jerome Dx/Rx/DC Orders Clinical Impression: Laceration of scalp, Closed head injury without loss of consciousness, Accidental fall Instructions: ED Laceration Scalp Stitches or Kinsman Prescriptions: No Action amlodipine 5 mg tablet 5 mg PO DAILY RF: 0 omeprazole magnesium 20 mg tablet,delayed release (DR/EC) 20 mg PO DAILY RF: 0 atorvastatin 10 mg tablet 10 mg PO DAILY RF: 0 tamsulosin 0.4 mg capsule 0.4 mg PO DAILY RF: 0 aspirin 81 mg tablet,delayed release (DR/EC) 81 mg PO DAILY RF: 0 finasteride 5 mg tablet 5 mg PO DAILY RF: 0 meloxicam 15 mg tablet 15 mg PO DAILY RF: 0 escitalopram oxalate 10 mg tablet 10 mg PO QHS RF: 0 loperamide 2 mg capsule 4 mg PO .COMPLEX PRN (Reason: Diarrhea) RF: 0 loperamide 2 mg capsule 2 mg PO .COMPLEX PRN (Reason: Diarrhea) RF: 0 magnesium hydroxide [Milk of Magnesia] 400 mg/5 mL suspension 30 ml PO DAILY PRN (Reason: Constipation) RF: 0 mirtazapine 15 mg tablet 15 mg PO QHS RF: 0 donepezil 10 mg tablet 10 mg PO QHS Qty: 30 RF: 2 loratadine [Claritin] 10 mg tablet 10 mg PO DAILY RF: 0 Gemtesa 75 mg tablet 75 mg PO DAILY RF: 0 acetaminophen [Tylenol] 325 mg capsule 650 mg PO ONCE PRN (Reason: Fever) RF: 0 acetaminophen [Tylenol] 325 mg capsule 650 mg PO ONCE PRN (Reason: Pain) RF: 0 carbidopa-levodopa [Sinemet] 25-100 mg tablet 2 tab PO .QID Qty: 240 RF: 2 Primary Care Provider: Josef Silverman Referrals: Josef Silverman MD [Primary Care Provider] - 5 Days for suture removal (Or staff practitioner/urgent care/ED) Disposition Disposition: Home, Self Care
--- NOTE | 2021-06-26 04:46 | CT_ITS ---
EXAM: CT HEAD WITHOUT INTRAVENOUS CONTRAST CLINICAL INDICATION: fall/injury fall/injury TECHNIQUE: Multiple axial images were obtained of the head without intravenous contrast. This CT exam was performed using one or more of the following dose reduction techniques: automated exposure control, adjustment of the mA and/or kV according to patient size, and/or use of iterative reconstruction technique. This report was created using [employer] report generation technology. COMPARISON: CT scan brain 10/18/2020. FINDINGS: BRAIN AND EXTRA-AXIAL SPACES: Areas of decreased attenuation in the deep cerebral white matter are consistent with small vessel ischemic/degenerative changes. The cerebral sulci are prominent consistent with brain atrophy. No intra- or extra-axial hemorrhage. No intracranial mass or mass effect. Basal cisterns are patent. BONES/JOINTS: Unremarkable. No discrete lytic or blastic abnormalities. SOFT TISSUES: There is a right frontal scalp contusion. VASCULATURE: Atherosclerotic disease. SINUSES: Unremarkable as visualized. Clear. MASTOID AIR CELLS: Unremarkable. Clear. ORBITS: Visualized globes, extraocular muscles, optic nerves and retrobulbar fat appear unremarkable. CT/Brain/Head without Contrast IMPRESSION: 1. Small vessel ischemic/degenerative changes. 2. Cerebral atrophy. 3. No demonstrated acute intracranial process. Electronically Signed: Edgardo Jeffrey MD at 5:41 EST , Service support ,
[2021-06-26] MEDS: Lidocaine/Epi/Tetracaine 50 ML 1 APPLIC TOPICAL (05:58)
== END 2021-06-26 05:59 | disposition home or self-care (01) ==
PROVIDERS: Emergency Provider Emergency Medicine; PCP Family Medicine; Visit Provider Emergency Medicine
DX: S01.01XA Laceration without foreign body of scalp, initial encounter (principal); G20 Parkinson's disease; F02.80 Dementia in other diseases classified elsewhere, unspecified severity, without behavioral disturbance, psychotic disturbance, mood disturbance, and anxiety; E78.5 Hyperlipidemia, unspecified; I10 Essential (primary) hypertension; F32.9 Major depressive disorder, single episode, unspecified; K21.9 Gastro-esophageal reflux disease without esophagitis; Z87.891 Personal history of nicotine dependence; W19.XXXA Unspecified fall, initial encounter; Z79.82 Long term (current) use of aspirin; Z79.899 Other long term (current) drug therapy
CPT/HCPCS: 12002; 70450; 99284

== ENCOUNTER 2021-06-30 16:00 | Outpatient (REF) | payer MEDICARE, BC, SELFPAY | END 2021-06-30 23:59 | disposition home or self-care (01) | LOC: OLS.DANBUR 16:00 | PROVIDERS: PCP Family Medicine; Visit Provider Family Medicine | DX: N39.0 Urinary tract infection, site not specified (principal) | CPT/HCPCS: 87086; 87088 ==

== ENCOUNTER 2021-07-24 11:32 | Emergency (ER) | payer MEDICARE, BC, SELFPAY ==
[2021-07-24 11:33] VITALS: BP 159/84; PULSE 67; RESP 15; TEMP 36.2; O2SAT 98
--- NOTE | 2021-07-24 12:05 | EDS_ITS ---
HPI HPI - Fall History of Present Illness Chief Complaint: Fall Informant: family Limited: dementia Occured/Mechanism Occurred: Today Mechanism/Context: Yes same level fall Pain/Injury Pain Location: head Worsened by: Nothing Relieved by: Nothing Associated Symptoms Associated Symptoms: Negative for Parasthesias, Loss of consciousness and Amnesia Narrative Narrative: Patient presents after a fall that occurred today. Patient fell at the extended care facility where he lives. Patient hit the right side of his head. denies any loss of consciousness. states patient is acting and talking normally. states that his tetanus is up-to-date. states the bleeding is controlled. Patient is a poor historian due to his primary progressive aphasia. [facility] Medical History Arthritis Cataracts, bilateral Dementia Dementia in other diseases classified elsewhere without behavioral disturbance Essential (primary) hypertension Gastro-esophageal reflux disease without esophagitis GERD (gastroesophageal reflux disease) Hyperlipidemia, unspecified Major depressive disorder, recurrent, unspecified Parkinsonism Primary progressive aphasia Prostate disorder Seasonal allergies Home Medications amlodipine 5 mg tablet 5 mg PO DAILY tab 07/05/20 [History Last Taken Unknown] aspirin 81 mg tablet,delayed release 81 mg PO DAILY tab 07/05/20 [History Last Taken Unknown] atorvastatin 10 mg tablet 10 mg PO DAILY tab 07/05/20 [History Last Taken Unknown] finasteride 5 mg tablet 5 mg PO DAILY 07/05/20 [History Last Taken Unknown] meloxicam 15 mg tablet 15 mg PO DAILY 07/05/20 [History Last Taken Unknown] omeprazole magnesium 20 mg tablet,delayed release 20 mg PO DAILY tab 07/05/20 [History Last Taken Unknown] tamsulosin 0.4 mg capsule 0.4 mg PO DAILY cap 07/05/20 [History Last Taken Unknown] donepezil 10 mg tablet 10 mg PO QHS #30 tablet 12/30/20 [Rx Last Taken Unknown] escitalopram oxalate 10 mg tablet 10 mg PO QHS tab 12/30/20 [History Last Taken Unknown] loperamide 2 mg capsule 2 mg PO .COMPLEX PRN 12/30/20 [History Last Taken Unknown] loperamide 2 mg capsule 4 mg PO .COMPLEX PRN cap 12/30/20 [History Last Taken Unknown] magnesium hydroxide 400 mg/5 mL oral suspension 30 ml PO DAILY PRN ml 12/30/20 [History Last Taken Unknown] mirtazapine 15 mg tablet 15 mg PO QHS tab 12/30/20 [History Last Taken Unknown] acetaminophen 325 mg capsule 650 mg PO ONCE PRN cap 03/04/21 [History Last Taken Unknown] acetaminophen 325 mg capsule 650 mg PO ONCE PRN cap 03/04/21 [History Last Taken Unknown] loratadine 10 mg tablet 10 mg PO DAILY 03/04/21 [History Last Taken Unknown] vibegron 75 mg tablet 75 mg PO DAILY tab 03/04/21 [History Last Taken Unknown] carbidopa 25 mg-levodopa 100 mg tablet 2 tab PO .QID #240 tab 04/03/21 [Rx Last Taken Unknown] Allergy/AdvReac Type Severity Reaction Status Date / Time No Known Allergies Allergy Verified 06/09/21 11:37 Family History Father Alcoholism Grandfather Alcoholism Mother CVA (cerebral vascular accident), Onset Age: 84 Other Arthritis Hypertension Surgical History History of tonsillectomy Social History Smoking Status: Former smoker how long ago did patient quit smoking: Quit in 1976 alcohol intake: current alcohol intake frequency: holidays/special occasions only substance use type: does not use ROS ROS ED Review of Systems ROS Unobtainable: due to mental condition EXAM Physical Exam Const Vital Signs: 07/24/21 11:33 07/24/21 11:41 Temperature 97.2 F L Temperature Source Temporal Pulse Rate 67 Respiratory Rate 15 Respiratory Effort Normal Non-Labored Blood Pressure 159/84 H Blood Pressure Mean 109 Pulse Ox 98 Oxygen Delivery Method Room Air Room Air Positive well nourished and well developed General Appearance ED: well developed and NAD HEENT HEENT Narrative: There is a 2.5 cm full-thickness linear laceration over the right frontal/parietal area. There is a superficial abrasion over this area. There is no bony crepitance or step-off. There are no foreign bodies visualized. There is minimal bleeding noted. Eyes PERRL and EOMs intact bilaterally Neck full ROM Neuro moves all extremities, no focal motor deficits and no sensory deficits noted Sensorium / Orientation: alert MDM MDM MDM Narrative Medical decision making narrative: The wound was cleaned and anesthetized 1% plain lidocaine locally. The wound was explored. There are no foreign bodies. There is no bony crepitance or step-off. The wound was closed with 3 simple stuart. Patient tolerated the procedure well. Patient was instructed to follow-up with his primary care physician in 5 to 7 days for wound recheck and staple removal. understood and was agreeable with the plan. All questions were answered. Procedures Lacerations Scalp: Depth: Skin Shape: Linear Prep: Sterile Conditions and Shure-Clens Laceration repair: Lidocaine and Local Number of Sutures/Cuthbert: 3 Suture Information: - (Cuthbert) Discharge Plan Triage Chief Complaint: Fall ED Provider: Emilio Hurt Dx/Rx/DC Orders Clinical Impression: Laceration of scalp Instructions: ED Laceration Scalp Stitches or [place]bert Prescriptions: No Action amlodipine 5 mg tablet 5 mg PO DAILY RF: 0 omeprazole magnesium 20 mg tablet,delayed release (DR/EC) 20 mg PO DAILY RF: 0 atorvastatin 10 mg tablet 10 mg PO DAILY RF: 0 tamsulosin 0.4 mg capsule 0.4 mg PO DAILY RF: 0 aspirin 81 mg tablet,delayed release (DR/EC) 81 mg PO DAILY RF: 0 finasteride 5 mg tablet 5 mg PO DAILY RF: 0 meloxicam 15 mg tablet 15 mg PO DAILY RF: 0 escitalopram oxalate 10 mg tablet 10 mg PO QHS RF: 0 loperamide 2 mg capsule 4 mg PO .COMPLEX PRN (Reason: Diarrhea) RF: 0 loperamide 2 mg capsule 2 mg PO .COMPLEX PRN (Reason: Diarrhea) RF: 0 magnesium hydroxide [Milk of Magnesia] 400 mg/5 mL suspension 30 ml PO DAILY PRN (Reason: Constipation) RF: 0 mirtazapine 15 mg tablet 15 mg PO QHS RF: 0 donepezil 10 mg tablet 10 mg PO QHS Qty: 30 RF: 2 loratadine [Claritin] 10 mg tablet 10 mg PO DAILY RF: 0 Gemtesa 75 mg tablet 75 mg PO DAILY RF: 0 acetaminophen [Tylenol] 325 mg capsule 650 mg PO ONCE PRN (Reason: Fever) RF: 0 acetaminophen [Tylenol] 325 mg capsule 650 mg PO ONCE PRN (Reason: Pain) RF: 0 carbidopa-levodopa [Sinemet] 25-100 mg tablet 2 tab PO .QID Qty: 240 RF: 2 Primary Care Provider: Josef Silverman Referrals: Josef Silverman MD [Primary Care Provider] - 5 Days for suture removal Disposition Disposition: Home, Self Care
[2021-07-24] MEDS: Lidocaine 1% (20 ml mdv) 20 ML Vial INFILT (12:35)
[2021-07-24 13:11] VITALS: BP 166/77; PULSE 63; RESP 18
== END 2021-07-24 13:21 | disposition home or self-care (01) ==
PROVIDERS: Emergency Provider Emergency Medicine; PCP Family Medicine; Visit Provider Emergency Medicine
DX: S01.01XA Laceration without foreign body of scalp, initial encounter (principal); G20 Parkinson's disease; F02.80 Dementia in other diseases classified elsewhere, unspecified severity, without behavioral disturbance, psychotic disturbance, mood disturbance, and anxiety; I10 Essential (primary) hypertension; E78.5 Hyperlipidemia, unspecified; Z87.891 Personal history of nicotine dependence; W18.30XA Fall on same level, unspecified, initial encounter; R47.01 Aphasia; Y93.9 Activity, unspecified; Y92.099 Unspecified place in other non-institutional residence as the place of occurrence of the external cause; H26.9 Unspecified cataract; K21.9 Gastro-esophageal reflux disease without esophagitis; M19.90 Unspecified osteoarthritis, unspecified site; Z79.82 Long term (current) use of aspirin; Z79.899 Other long term (current) drug therapy
CPT/HCPCS: 12001; 99284

== ENCOUNTER 2021-07-27 21:47 | Emergency (ER) | payer MEDICARE, BC, SELFPAY ==
[2021-07-27 21:48] VITALS: BP 146/60; PULSE 88; RESP 18; TEMP 36.4; O2SAT 96; BMI 22.9
--- NOTE | 2021-07-27 21:59 | CT_ITS ---
STUDY: CT BRAIN WITHOUT CONTRAST REASON FOR EXAM: Male, 76 years old. fall RADIATION DOSAGE (If Supplied By Facility): CTDIvol = ( 34.70 ) mGy, DLP = ( 695.51 ) mGycm TECHNIQUE: Transaxial CT imaging of the brain was performed without administration of intravenous contrast material. Individualized dose optimization techniques were used for this CT. COMPARISON: No relevant priors. FINDINGS: Normal soft tissue structures. Normal calvarium. There is mild cerebral atrophy with widening of the extra-axial spaces and ventricular dilatation. There are areas of decreased attenuation within the white matter tracts of the supratentorial brain, consistent with microvascular disease changes. Normal basal ganglia and thalami. Normal brainstem. Normal cerebellum. There is no intracranial hemorrhage. There are no findings of an acute ischemic infarction. Normal visualized paranasal sinuses. CT/Brain/Head without Contrast IMPRESSION: Chronic involutional changes of the brain. Electronically Signed: Reji Perez DO at 22:51 EST ,
--- NOTE | 2021-07-27 22:00 | EDS_ITS ---
HPI History of Present Illness Chief Complaint: Head Injury Informant: patient and spouse/S.O. Narrative Narrative: Patient has a history of dementia, Parkinson's, frequent falls. Patient presents with family tonight after he fell striking his right upper head where he just had stuart placed 3 days ago. No loss of consciousness. [facility] Medical History Arthritis Cataracts, bilateral Dementia Dementia in other diseases classified elsewhere without behavioral disturbance Essential (primary) hypertension Gastro-esophageal reflux disease without esophagitis GERD (gastroesophageal reflux disease) Hyperlipidemia, unspecified Major depressive disorder, recurrent, unspecified Parkinsonism Primary progressive aphasia Prostate disorder Seasonal allergies Home Medications amlodipine 5 mg tablet 5 mg PO DAILY tab 07/05/20 [History Last Taken Unknown] aspirin 81 mg tablet,delayed release 81 mg PO DAILY tab 07/05/20 [History Last Taken Unknown] atorvastatin 10 mg tablet 10 mg PO DAILY tab 07/05/20 [History Last Taken Unknown] finasteride 5 mg tablet 5 mg PO DAILY 07/05/20 [History Last Taken Unknown] meloxicam 15 mg tablet 15 mg PO DAILY 07/05/20 [History Last Taken Unknown] omeprazole magnesium 20 mg tablet,delayed release 20 mg PO DAILY tab 07/05/20 [History Last Taken Unknown] tamsulosin 0.4 mg capsule 0.4 mg PO DAILY cap 07/05/20 [History Last Taken Unknown] donepezil 10 mg tablet 10 mg PO QHS #30 tablet 12/30/20 [Rx Last Taken Unknown] escitalopram oxalate 10 mg tablet 10 mg PO QHS tab 12/30/20 [History Last Taken Unknown] loperamide 2 mg capsule 2 mg PO .COMPLEX PRN 12/30/20 [History Last Taken Unknown] loperamide 2 mg capsule 4 mg PO .COMPLEX PRN cap 12/30/20 [History Last Taken Unknown] magnesium hydroxide 400 mg/5 mL oral suspension 30 ml PO DAILY PRN ml 12/30/20 [History Last Taken Unknown] mirtazapine 15 mg tablet 15 mg PO QHS tab 12/30/20 [History Last Taken Unknown] acetaminophen 325 mg capsule 650 mg PO ONCE PRN cap 03/04/21 [History Last Taken Unknown] acetaminophen 325 mg capsule 650 mg PO ONCE PRN cap 03/04/21 [History Last T aken Unknown] loratadine 10 mg tablet 10 mg PO DAILY 03/04/21 [History Last Taken Unknown] vibegron 75 mg tablet 75 mg PO DAILY tab 03/04/21 [History Last Taken Unknown] carbidopa 25 mg-levodopa 100 mg tablet 2 tab PO .QID #240 tab 04/03/21 [Rx Last Taken Unknown] Allergy/AdvReac Type Severity Reaction Status Date / Time No Known Allergies Allergy Verified 07/27/21 21:50 Family History (Reviewed 07/27/21 @ 22: by Dr. Mona Allen MD) Father Alcoholism Grandfather Alcoholism Mother CVA (cerebral vascular accident), Onset Age: 84 Other Arthritis Hypertension Surgical History (Reviewed 07/27/21 @ 22: by Dr. Mona Allen MD) History of tonsillectomy Social History (Reviewed 07/27/21 @ 22: by Dr. Mona Allen MD) Smoking Status: Former smoker how long ago did patient quit smoking: Quit in 1976 alcohol intake: current alcohol intake frequency: holidays/special occasions only substance use type: does not use ROS ROS ED Review of Systems ROS Unobtainable: due to mental condition EXAM Physical Exam Const Vital Signs: 07/27/21 21:48 07/27/21 21:54 Temperature 97.6 F L Temperature Source Temporal Pulse Rate 88 Respiratory Rate 18 Respiratory Effort Normal Respiratory Depth Normal Respiratory Pattern Normal Blood Pressure 146/60 H Blood Pressure Mean 88 Pulse Ox 96 Oxygen Delivery Method Room Air Room Air Positive well nourished and well developed General Appearance ED: well developed HEENT Reports moist mucous membranes HEENT Narrative: Healing incision noted to the right anterior parietal scalp. Three stuart are in place, but the anteriormost staple is loose and easily removed with fingers. Minimal active bleeding. Eyes PERRL and EOMs intact bilaterally Neck no lymphadenopathy and supple Chest Wall inspection of chest normal and palpation of chest normal Resp normal respiratory effort and clear to auscultation bilaterally Cardio regular rate and regular rhythm GI non-tender Palpation: soft Neuro Neuro Narrative: Fine tremor noted to the upper extremities. Sensorium / Orientation: alert Psych Psych Narrative: Patient alert and looks about the room. MDM MDM MDM Narrative Medical decision making narrative: LET was applied to the right parietal scalp laceration. Patient sent for head CT. Upon return from CT wound cleansed and a single staple placed to replace the one that had been knocked out. Radiography Diagnostic Testing: Clinical Impression(s) from Imaging Studies Brain CT 07/27/21 21:59 IMPRESSION: Chronic involutional changes of the brain. Electronically Signed: Reji Perez DO at 22:51 EST , Treatment and Re-Evaluation Comments:: CT scan reveals chronic changes only. Test results discussed with at bedside. Appointment for staple removal until Wednesday. Discharge Plan Triage Chief Complaint: Head Injury ED Provider: Mona Allen Dx/Rx/DC Orders Clinical Impression: Fall, Encounter for wound re-check Instructions: ED Head Injury (Adult) Prescriptions: No Action amlodipine 5 mg tablet 5 mg PO DAILY RF: 0 omeprazole magnesium 20 mg tablet,delayed release (DR/EC) 20 mg PO DAILY RF: 0 atorvastatin 10 mg tablet 10 mg PO DAILY RF: 0 tamsulosin 0.4 mg capsule 0.4 mg PO DAILY RF: 0 aspirin 81 mg tablet,delayed release (DR/EC) 81 mg PO DAILY RF: 0 finasteride 5 mg tablet 5 mg PO DAILY RF: 0 meloxicam 15 mg tablet 15 mg PO DAILY RF: 0 escitalopram oxalate 10 mg tablet 10 mg PO QHS RF: 0 loperamide 2 mg capsule 4 mg PO .COMPLEX PRN (Reason: Diarrhea) RF: 0 loperamide 2 mg capsule 2 mg PO .COMPLEX PRN (Reason: Diarrhea) RF: 0 magnesium hydroxide [Milk of Magnesia] 400 mg/5 mL suspension 30 ml PO DAILY PRN (Reason: Constipation) RF: 0 mirtazapine 15 mg tablet 15 mg PO QHS RF: 0 donepezil 10 mg tablet 10 mg PO QHS Qty: 30 RF: 2 loratadine [Claritin] 10 mg tablet 10 mg PO DAILY RF: 0 Gemtesa 75 mg tablet 75 mg PO DAILY RF: 0 acetaminophen [Tylenol] 325 mg capsule 650 mg PO ONCE PRN (Reason: Fever) RF: 0 acetaminophen [Tylenol] 325 mg capsule 650 mg PO ONCE PRN (Reason: Pain) RF: 0 carbidopa-levodopa [Sinemet] 25-100 mg tablet 2 tab PO .QID Qty: 240 RF: 2 Primary Care Provider: Josef Silverman Referrals: Josef Silverman MD [Primary Care Provider] - 5 Days for suture removal Disposition Disposition: Home, Self Care
[2021-07-27] MEDS: Lidocaine/Epi/Tetracaine 50 ML 1 APPLIC TOPICAL (22:05)
== END 2021-07-27 23:46 | disposition home or self-care (01) ==
PROVIDERS: Emergency Provider Emergency Medicine; PCP Family Medicine; Visit Provider Emergency Medicine
DX: S01.01XA Laceration without foreign body of scalp, initial encounter (principal); F03.90 Unspecified dementia, unspecified severity, without behavioral disturbance, psychotic disturbance, mood disturbance, and anxiety; E78.5 Hyperlipidemia, unspecified; I10 Essential (primary) hypertension; M19.90 Unspecified osteoarthritis, unspecified site; K21.9 Gastro-esophageal reflux disease without esophagitis; W19.XXXA Unspecified fall, initial encounter; Z87.891 Personal history of nicotine dependence; Z79.899 Other long term (current) drug therapy; Z79.82 Long term (current) use of aspirin; Z48.00 Encounter for change or removal of nonsurgical wound dressing
CPT/HCPCS: 12001; 70450; 99282

== ENCOUNTER 2021-08-06 12:11 | Emergency (ER) | payer MEDICARE, BC, SELFPAY ==
[2021-08-06 12:12] VITALS: BP 167/91; PULSE 75; RESP 18; TEMP 36.7; O2SAT 95; BMI 24.3
--- NOTE | 2021-08-06 12:34 | EX.ED.GENINJ ---
HPI History of Present Illness Chief Complaint: Head Injury Informant: patient and family Narrative Narrative: Patient had an unwitnessed fall at assisted living today. Family states that after having an outpatient test here in the hospital, he went back and she forgot to put his pendant back around his neck that he uses to call for help to go to the bathroom so she suspects he got up to go by himself and fell which he commonly does due to Parkinson's disease. He injured his head. She states he hit his head in the same place that he just had his stuart removed. [facility] Medical History Arthritis Cataracts, bilateral Dementia Dementia in other diseases classified elsewhere without behavioral disturbance Essential (primary) hypertension Gastro-esophageal reflux disease without esophagitis GERD (gastroesophageal reflux disease) Hyperlipidemia, unspecified Major depressive disorder, recurrent, unspecified Parkinsonism Primary progressive aphasia Prostate disorder Seasonal allergies Home Medications amlodipine 5 mg tablet 5 mg PO DAILY tab 07/05/20 [History Last Taken Unknown] aspirin 81 mg tablet,delayed release 81 mg PO DAILY tab 07/05/20 [History Last Taken Unknown] atorvastatin 10 mg tablet 10 mg PO DAILY tab 07/05/20 [History Last Taken Unknown] finasteride 5 mg tablet 5 mg PO DAILY 07/05/20 [History Last Taken Unknown] meloxicam 15 mg tablet 15 mg PO DAILY 07/05/20 [History Last Taken Unknown] omeprazole magnesium 20 mg tablet,delayed release 20 mg PO DAILY tab 07/05/20 [History Last Taken Unknown] tamsulosin 0.4 mg capsule 0.4 mg PO DAILY cap 07/05/20 [History Last Taken Unknown] donepezil 10 mg tablet 10 mg PO QHS #30 tablet 12/30/20 [Rx Last Taken Unknown] escitalopram oxalate 10 mg tablet 10 mg PO QHS tab 12/30/20 [History Last Taken Unknown] loperamide 2 mg capsule 2 mg PO .COMPLEX PRN 12/30/20 [History Last Taken Unknown] loperamide 2 mg capsule 4 mg PO .COMPLEX PRN cap 12/30/20 [History Last Taken Unknown] magnesium hydroxide 400 mg/5 mL oral suspension 30 ml PO DAILY PRN ml 12/30/20 [History Last Taken Unknown] mirtazapine 15 mg tablet 15 mg PO QHS tab 12/30/20 [History Last Taken Unknown] acetaminophen 325 mg capsule 650 mg PO ONCE PRN cap 03/04/21 [History Last Taken Unknown] acetaminophen 325 mg capsule 650 mg PO ONCE PRN cap 03/04/21 [History Last Taken Unknown] loratadine 10 mg tablet 10 mg PO DAILY 03/04/21 [History Last Taken Unknown] vibegron 75 mg tablet 75 mg PO DAILY tab 03/04/21 [History Last Taken Unknown] carbidopa 25 mg-levodopa 100 mg tablet 2 tab PO .QID #240 tab 04/03/21 [Rx Last Taken Unknown] Allergy/AdvReac Type Severity Reaction Status Date / Time No Known Allergies Allergy Verified 08/06/21 12:14 Family History Father Alcoholism Grandfather Alcoholism Mother CVA (cerebral vascular accident), Onset Age: 84 Other Arthritis Hypertension Surgical History History of tonsillectomy Social History Smoking Status: Former smoker how long ago did patient quit smoking: Quit in 1976 alcohol intake: current alcohol intake frequency: holidays/special occasions only substance use type: does not use ROS ROS ED Constitutional Constitutional ED: Denies chills or fever(s) Eyes Eyes: Denies change in vision or diplopia ENT ENT ED: Denies rhinorrhea or sore throat Cardiovascular Cardiovascular: Denies chest pain or palpitations Respiratory/Chest Respiratory/Chest: Denies cough or dyspnea Gastrointestinal Gastrointestinal: Denies abdominal pain, diarrhea, nausea or vomiting Genitourinary Genitourinary ED: Denies dysuria or hematuria Musculoskeletal Musculoskeletal: Denies back pain or neck pain Integumentary Denies abscess or rash Neurologic Neurologic: Reports tremor(s); Denies headache(s), paresthesias or weakness Psychiatric Psychiatric: Denies anxiety or suicidal thoughts EXAM Physical Exam Const Vital Signs: 08/06/21 12:12 08/06/21 12:30 Temperature 98.1 F Temperature Source Temporal Pulse Rate 75 Respiratory Rate 18 Respiratory Effort Normal Respiratory Depth Normal Respiratory Pattern Normal Blood Pressure 167/91 H Blood Pressure Mean 116 Pulse Ox 95 Oxygen Delivery Method Room Air Room Air Positive well nourished and well developed General Appearance ED: well developed and NAD HEENT Reports TM's clear and moist mucous membranes HEENT Narrative: Broad superficial abrasion about 3 cm in diameter right upper forehead, there is a partial-thickness very superficial laceration within it, that likely represents a recent laceration that is mostly healed according to the history, there is no active bleeding. No crepitance or depression, the entire area is only very mildly tender. normocephalic and trauma Tympanic Membrane ED: Yes TM's clear Eyes PERRL and EOMs intact bilaterally Neck full ROM and supple Resp normal respiratory effort and clear to auscultation bilaterally Cardio regular rate, regular rhythm and no murmurs GI non-tender and non-distended Auscultation: normoactive bowel sounds Palpation: soft Back/Spine no CVA tenderness General Back: other FROM Extremity normal to inspection General Extremety ED: Negative for edema, pulses abnormal or tenderness General Extremity: Negative for edema or pulses abnormal Neuro oriented x3, CN's II-XII intact bilaterally and no sensory deficits noted Sensorium / Orientation: awake and alert Motor Exam: strength 5/5 throughout Skin no rashes or lesions noted and no wounds MDM MDM MDM Narrative Medical decision making narrative: CT of the head was performed and it is negative for any intracranial injury. I do not think he needs any repair of this, simply a dressing with antibiotic ointment for what is mostly an abrasion. Discussed this with the family and they are comfortable with that plan. Sounds like the cause was fairly benign and related to his dementia and parkinsonism, I do not think he needs more of a work-up right now. Radiography Diagnostic Testing: Clinical Impression(s) from Imaging Studies Brain CT 08/06/21 12:50 IMPRESSION: Chronic involutional changes of the brain. Electronically Signed: Gera Matta MD at 13:04 EST , Discharge Plan Triage Chief Complaint: Head Injury ED Provider: Guanaco Jerome Dx/Rx/DC Orders Clinical Impression: Abrasion of forehead, Closed head injury without loss of consciousness Instructions: ED Head Injury (Adult) Prescriptions: No Action amlodipine 5 mg tablet 5 mg PO DAILY RF: 0 omeprazole magnesium 20 mg tablet,delayed release (DR/EC) 20 mg PO DAILY RF: 0 atorvastatin 10 mg tablet 10 mg PO DAILY RF: 0 tamsulosin 0.4 mg capsule 0.4 mg PO DAILY RF: 0 aspirin 81 mg tablet,delayed release (DR/EC) 81 mg PO DAILY RF: 0 finasteride 5 mg tablet 5 mg PO DAILY RF: 0 meloxicam 15 mg tablet 15 mg PO DAILY RF: 0 escitalopram oxalate 10 mg tablet 10 mg PO QHS RF: 0 loperamide 2 mg capsule 4 mg PO .COMPLEX PRN (Reason: Diarrhea) RF: 0 loperamide 2 mg capsule 2 mg PO .COMPLEX PRN (Reason: Diarrhea) RF: 0 magnesium hydroxide [Milk of Magnesia] 400 mg/5 mL suspension 30 ml PO DAILY PRN (Reason: Constipation) RF: 0 mirtazapine 15 mg tablet 15 mg PO QHS RF: 0 donepezil 10 mg tablet 10 mg PO QHS Qty: 30 RF: 2 loratadine [Claritin] 10 mg tablet 10 mg PO DAILY RF: 0 Gemtesa 75 mg tablet 75 mg PO DAILY RF: 0 acetaminophen [Tylenol] 325 mg capsule 650 mg PO ONCE PRN (Reason: Fever) RF: 0 acetaminophen [Tylenol] 325 mg capsule 650 mg PO ONCE PRN (Reason: Pain) RF: 0 carbidopa-levodopa [Sinemet] 25-100 mg tablet 2 tab PO .QID Qty: 240 RF: 2 Primary Care Provider: Josef Silverman Referrals: Josef Silverman MD [Primary Care Provider] - As Needed Activity Restrictions/Additional Instructions: Dressing change with plain gauze and antibiotic ointment to forehead abrasion twice daily until no more seeping then once daily. Disposition Disposition: Home, Self Care
--- NOTE | 2021-08-06 12:50 | CT_ITS ---
STUDY: CT BRAIN WITHOUT CONTRAST REASON FOR EXAM: Male, 76 years old. Trauma due to a fall. RADIATION DOSAGE (If Supplied By Facility): CTDIvol = ( 37.35 ) mGy, DLP = ( 1490.86 ) mGycm TECHNIQUE: Transaxial CT imaging of the brain was performed without administration of intravenous contrast material. Individualized dose optimization techniques were used for this CT. COMPARISON: Comparison is made with prior study of 07/27/2021. FINDINGS: Normal soft tissue structures. Normal calvarium. There is mild cerebral atrophy with widening of the extra-axial spaces and ventricular dilatation. Normal white matter tracts of the cerebral hemispheres. Normal basal ganglia and thalami. Normal brainstem. Normal cerebellum. There is no intracranial hemorrhage. There are no findings of an acute ischemic infarction. Atherosclerotic calcification of the vertebral arteries and cavernous portions of the internal carotid arteries bilaterally. Normal visualized paranasal sinuses. CT/Brain/Head without Contrast IMPRESSION: Chronic involutional changes of the brain. Electronically Signed: Gera Matta MD at 13:04 EST ,
[2021-08-06 14:31] VITALS: BP 156/81; PULSE 90; RESP 15; O2SAT 98
== END 2021-08-06 14:34 | disposition home or self-care (01) ==
PROVIDERS: Emergency Provider Emergency Medicine; PCP Family Medicine; Visit Provider Emergency Medicine
DX: S00.81XA Abrasion of other part of head, initial encounter (principal); G20 Parkinson's disease; F03.90 Unspecified dementia, unspecified severity, without behavioral disturbance, psychotic disturbance, mood disturbance, and anxiety; S09.90XA Unspecified injury of head, initial encounter; I10 Essential (primary) hypertension; E78.5 Hyperlipidemia, unspecified; K21.9 Gastro-esophageal reflux disease without esophagitis; Z87.891 Personal history of nicotine dependence; Z79.82 Long term (current) use of aspirin; Z79.899 Other long term (current) drug therapy; W19.XXXA Unspecified fall, initial encounter
CPT/HCPCS: 70450; 99282

== ENCOUNTER 2021-09-27 00:57 | Emergency (ER) | payer MEDICARE, BC, SELFPAY ==
[2021-09-27 00:58] VITALS: BP 164/91; PULSE 76; RESP 17; TEMP 35.9; O2SAT 98; BMI 25.9
[2021-09-27 01:04] VITALS: O2SAT 97
--- NOTE | 2021-09-27 01:22 | CT_ITS ---
STUDY: CT BRAIN WITHOUT CONTRAST REASON FOR EXAM: Male, 76 years old. head injury RADIATION DOSAGE (If Supplied By Facility): CTDIvol = ( 47.06 ) mGy, DLP = ( 960.91 ) mGycm TECHNIQUE: Transaxial CT imaging of the brain was performed without administration of intravenous contrast material. Individualized dose optimization techniques were used for this CT. COMPARISON: CT head 08/06/2021. FINDINGS: BRAIN: No acute bleed. No edema. Decreased attenuation in the periventricular white matter bilaterally. Lloyd-white matter differentiation is maintained. Arterial calcifications. VENTRICLES AND SULCI: Ventricles and sulci are prominent. EXTRA-AXIAL: No hemorrhage, fluid collection, or mass. CALVARIUM / SKULL BASE: Unremarkable. FACE/SINUSES: Unremarkable. SOFT TISSUES: Mild soft tissue swelling in the right frontal scalp anteriorly. CT/Brain/Head without Contrast IMPRESSION: Scalp contusion. No evidence of acute intracranial injury. Chronic microvascular ischemic disease and volume loss. Electronically Signed: Kellie Ervin MD at 2:19 EDT ,
--- NOTE | 2021-09-27 02:54 | EDS_ITS ---
HPI History of Present Illness Chief Complaint: Fall Narrative Narrative: Patient is a 76-year-old male from the residential with past medical history of Parkinson's disease and aphasia. He cannot offer further history secondary to this. states residential called and said he had fallen out of bed this evening and struck his head. Reportedly he sustained a cut to the head with the fall and therefore was sent to the hospital for evaluation. states patient is at his baseline mental status and she denies any blood thinner use. [facility] Medical History Arthritis Cataracts, bilateral Dementia Dementia in other diseases classified elsewhere without behavioral disturbance Essential (primary) hypertension Gastro-esophageal reflux disease without esophagitis GERD (gastroesophageal reflux disease) Hyperlipidemia, unspecified Major depressive disorder, recurrent, unspecified Parkinsonism Primary progressive aphasia Prostate disorder Seasonal allergies Home Medications amlodipine 5 mg tablet 5 mg PO DAILY tab 07/05/20 [History Last Taken Unknown] aspirin 81 mg tablet,delayed release 81 mg PO DAILY tab 07/05/20 [History Last Taken Unknown] atorvastatin 10 mg tablet 10 mg PO DAILY tab 07/05/20 [History Last Taken Unknown] finasteride 5 mg tablet 5 mg PO DAILY 07/05/20 [History Last Taken Unknown] meloxicam 15 mg tablet 15 mg PO DAILY 07/05/20 [History Last Taken Unknown] omeprazole magnesium 20 mg tablet,delayed release 20 mg PO DAILY tab 07/05/20 [History Last Taken Unknown] tamsulosin 0.4 mg capsule 0.4 mg PO DAILY cap 07/05/20 [History Last Taken Unknown] escitalopram oxalate 10 mg tablet 10 mg PO QHS tab 12/30/20 [History Last Taken Unknown] loperamide 2 mg capsule 2 mg PO .COMPLEX PRN 12/30/20 [History Last Taken Unknown] magnesium hydroxide 400 mg/5 mL oral suspension 30 ml PO DAILY PRN ml 12/30/20 [History Last Taken Unknown] mirtazapine 15 mg tablet 15 mg PO QHS tab 12/30/20 [History Last Taken Unknown] acetaminophen 325 mg capsule 650 mg PO ONCE PRN cap 03/04/21 [History Last Taken Unknown] acetaminophen 325 mg capsule 650 mg PO ONCE PRN cap 03/04/21 [History Last Taken Unknown] loratadine 10 mg tablet 10 mg PO DAILY 03/04/21 [History Last Taken Unknown] vibegron 75 mg tablet 75 mg PO DAILY tab 03/04/21 [History Last Taken Unknown] carbidopa 25 mg-levodopa 100 mg tablet 2 tab PO .QID #240 tab 04/03/21 [Rx Last Taken Unknown] donepezil 10 mg tablet 10 mg PO QHS #30 tablet 08/28/21 [Rx Last Taken Unknown] Allergy/AdvReac Type Severity Reaction Status Date / Time No Known Allergies Allergy Verified 09/04/21 13:27 Family History Father Alcoholism Grandfather Alcoholism Mother CVA (cerebral vascular accident), Onset Age: 84 Other Arthritis Hypertension Surgical History History of tonsillectomy Social History Smoking Status: Former smoker how long ago did patient quit smoking: Quit in 1976 alcohol intake: current alcohol intake frequency: holidays/special occasions only substance use type: does not use ROS ROS ED Review of Systems ROS Unobtainable: due to mental condition and due to mental status EXAM Physical Exam Const Vital Signs: 09/27/21 00:58 09/27/21 01:04 09/27/21 03:01 Temperature 96.7 F L 98.1 F Temperature Source Temporal Pulse Rate 76 75 Respiratory Rate 17 17 Respiratory Effort Normal Blood Pressure 164/91 H 158/83 H Blood Pressure Mean 115 Pulse Ox 98 97 97 Oxygen Delivery Method Room Air Room Air Positive well nourished and well developed General Appearance ED: well developed HEENT HEENT Narrative: Patient has a vertical linear 5 cm subcutaneous layer deep laceration to the right section of his forehead/frontal scalp. There is minimal ooze of blood but no foreign body. No signs of depressed or basilar skull fracture. No septal hematoma noted Eyes PERRL and EOMs intact bilaterally Neck supple Neck Narrative: No bony deformity or step-off of the cervical spine no midline pain on palpation Chest Wall palpation of chest normal Chest Narrative: No bony deformity or crepitance Resp normal respiratory effort and clear to auscultation bilaterally Cardio regular rate and regular rhythm GI normal to inspection, nondistended, normoactive bowel sounds, non-tender, non- distended and no masses Auscultation: normoactive bowel sounds Palpation: soft Extremity Extremity Narrative: Pelvis is stable there is no shortening or external rotation of either lower extremity. No bony deformity or step-off of the thoracic or lumbar spine no midline pain with palpation. Neuro Neuro Narrative: Patient is at his baseline mental status per with no new cranial nerve deficit Psych Psych Narrative: Patient has a depressed/flat affect Skin Skin Narrative: Laceration to the forehead as documented above MDM MDM MDM Narrative Medical decision making narrative: Nursing reported a mechanical fall out of bed and therefore I felt no need for cardiac or syncope work-up. Based on his inability to provide history and the laceration/head trauma I did elect to perform a CT which revealed no acute skull fracture or brain bleed. Based on h is physical exam I felt no need for further x-rays or imaging studies. The patient had the wound closed as documented below. reports that his tetanus status was updated a few years ago as well and does not feel it is necessary at this time. Therefore after the wound was closed as skull fracture/brain bleed has been ruled out he is otherwise safe to return to the residential Patient had the wound cleaned with chlorhexidine. It was anesthetized with 8 mL of 2% lidocaine with epinephrine and local fashion. The wound was copiously irrigated with normal saline. Then fifteen 5-0 Ethilon sutures were placed in simple interrupted fashion. This brought the wound together good approximation. Patient tolerated the procedure well without complication. Radiography Diagnostic Testing: Clinical Impression(s) from Imaging Studies Brain CT 09/27/21 01:22 IMPRESSION: Scalp contusion. No evidence of acute intracranial injury. Chronic microvascular ischemic disease and volume loss. Electronically Signed: Kellie Ervin MD at 2:19 EDT , Discharge Plan Triage Chief Complaint: Fall ED Provider: Anthony Sheriff Dx/Rx/DC Orders Clinical Impression: Head injury, Parkinsonism, Laceration of scalp Instructions: ED Head Injury (Adult), ED Laceration: All Closures Prescriptions: No Action amlodipine 5 mg tablet 5 mg PO DAILY RF: 0 omeprazole magnesium 20 mg tablet,delayed release (DR/EC) 20 mg PO DAILY RF: 0 atorvastatin 10 mg tablet 10 mg PO DAILY RF: 0 tamsulosin 0.4 mg capsule 0.4 mg PO DAILY RF: 0 aspirin 81 mg tablet,delayed release (DR/EC) 81 mg PO DAILY RF: 0 finasteride 5 mg tablet 5 mg PO DAILY RF: 0 meloxicam 15 mg tablet 15 mg PO DAILY RF: 0 escitalopram oxalate 10 mg tablet 10 mg PO QHS RF: 0 loperamide 2 mg capsule 2 mg PO .COMPLEX PRN (Reason: Diarrhea) RF: 0 magnesium hydroxide [Milk of Magnesia] 400 mg/5 mL suspension 30 ml PO DAILY PRN (Reason: Constipation) RF: 0 mirtazapine 15 mg tablet 15 mg PO QHS RF: 0 loratadine [Claritin] 10 mg tablet 10 mg PO DAILY RF: 0 Gemtesa 75 mg tablet 75 mg PO DAILY RF: 0 acetaminophen [Tylenol] 325 mg capsule 650 mg PO ONCE PRN (Reason: Fever) RF: 0 acetaminophen [Tylenol] 325 mg capsule 650 mg PO ONCE PRN (Reason: Pain) RF: 0 carbidopa-levodopa [Sinemet] 25-100 mg tablet 2 tab PO .QID Qty: 240 RF: 2 donepezil 10 mg tablet 10 mg PO QHS Qty: 30 RF: 0 Primary Care Provider: Josef Silverman Referrals: Josef Silverman MD [Primary Care Provider] - Activity Restrictions/Additional Instructions: Please see your family doctor or return to the ER in 7 to 10 days for suture removal Disposition Disposition: Home, Self Care Discharge Date/Time: 09/27/21 03:06
[2021-09-27 03:01] VITALS: BP 158/83; PULSE 75; RESP 17; TEMP 36.7; O2SAT 97
== END 2021-09-27 03:06 | disposition home or self-care (01) ==
PROVIDERS: Emergency Provider Emergency Medicine; PCP Family Medicine; Visit Provider Emergency Medicine
DX: S01.01XA Laceration without foreign body of scalp, initial encounter (principal); G20 Parkinson's disease; F02.80 Dementia in other diseases classified elsewhere, unspecified severity, without behavioral disturbance, psychotic disturbance, mood disturbance, and anxiety; G31.01 Pick's disease; F33.9 Major depressive disorder, recurrent, unspecified; E78.5 Hyperlipidemia, unspecified; Z87.891 Personal history of nicotine dependence; I10 Essential (primary) hypertension; W06.XXXA Fall from bed, initial encounter; Y93.9 Activity, unspecified; Y99.9 Unspecified external cause status; Y92.129 Unspecified place in nursing home as the place of occurrence of the external cause; M19.90 Unspecified osteoarthritis, unspecified site; K21.9 Gastro-esophageal reflux disease without esophagitis; Z79.899 Other long term (current) drug therapy; Z79.82 Long term (current) use of aspirin
CPT/HCPCS: 12002; 70450; 99284

== ENCOUNTER 2021-12-18 04:46 | Emergency (ER) | payer MEDICARE, BC, SELFPAY ==
[2021-12-18 04:47] VITALS: BP 150/75; PULSE 55; RESP 15; TEMP 36.7; O2SAT 96; BMI 25.1
--- NOTE | 2021-12-18 05:48 | EX.ED.GENINJ ---
HPI History of Present Illness Chief Complaint: Laceration Narrative Narrative: This is a 76-year-old male with history of aphasia, cerebrovascular disease, dementia, parkinsonism presenting with a laceration to the right ear. His states he had a fall but nobody saw it. She states he often tries to get up and walk but does not walk well. He has a small laceration to the ear. She feels he is acting at baseline. Patient is not anticoagulated but is on aspirin. [facility] Medical History Arthritis Cataracts, bilateral Dementia Dementia in other diseases classified elsewhere without behavioral disturbance Essential (primary) hypertension Gastro-esophageal reflux disease without esophagitis Hyperlipidemia, unspecified Major depressive disorder, recurrent, unspecified Parkinsonism Primary progressive aphasia Prostate disorder Seasonal allergies Home Medications amlodipine 5 mg tablet 5 mg PO DAILY 07/05/20 [History Last Taken Unknown] aspirin 81 mg tablet,delayed release 81 mg PO DAILY 07/05/20 [History Last Taken Unknown] atorvastatin 10 mg tablet 10 mg PO DAILY 07/05/20 [History Last Taken Unknown] finasteride 5 mg tablet 5 mg PO DAILY 07/05/20 [History Last Taken Unknown] meloxicam 15 mg tablet 15 mg PO DAILY 07/05/20 [History Last Taken Unknown] omeprazole magnesium 20 mg tablet,delayed release 20 mg PO DAILY 07/05/20 [History Last Taken Unknown] tamsulosin 0.4 mg capsule 0.4 mg PO DAILY 07/05/20 [History Last Taken Unknown] escitalopram oxalate 10 mg tablet 10 mg PO QHS 12/30/20 [History Last Taken Unknown] loperamide 2 mg capsule 2 mg PO .COMPLEX PRN Diarrhea 12/30/20 [History Last Taken Unknown] magnesium hydroxide 400 mg/5 mL oral suspension (Milk of Magnesia) 30 ml PO DAILY PRN Constipation 12/30/20 [History Last Taken Unknown] mirtazapine 15 mg tablet 15 mg PO QHS 12/30/20 [History Last Taken Unknown] acetaminophen 325 mg capsule (Tylenol) 650 mg PO ONCE PRN Fever 03/04/21 [History Last Taken Unknown] acetaminophen 325 mg capsule (Tylenol) 650 mg PO ONCE PRN Pain 03/04/21 [History Last Taken Unknown] loratadine 10 mg tablet (Claritin) 10 mg PO DAILY 03/04/21 [History Last Taken Unknown] vibegron 75 mg tablet 75 mg PO DAILY 03/04/21 [History Last Taken Unknown] carbidopa 25 mg-levodopa 100 mg tablet (Sinemet) 2 tab PO .QID #240 tabs 04/03/21 [Rx Last Taken Unknown] donepezil 10 mg tablet 10 mg PO QHS #30 tabs 08/28/21 [Rx Last Taken Unknown] Allergy/AdvReac Type Severity Reaction Status Date / Time No Known Allergies Allergy Verified 09/04/21 13:27 Family History Father Alcoholism Grandfather Alcoholism Mother CVA (cerebral vascular accident), Onset Age: 84 Other Arthritis Hypertension Surgical History History of tonsillectomy Social History Smoking Status: Former smoker how long ago did patient quit smoking: Quit in 1976 alcohol intake: current alcohol intake frequency: holidays/special occasions only substance use type: does not use ROS ROS ED Review of Systems ROS Unobtainable: due to mental status EXAM Physical Exam Const Vital Signs: 12/18/21 04:47 Temperature 98.0 F Temperature Source Temporal Pulse Rate 55 L Respiratory Rate 15 Blood Pressure 150/75 H Blood Pressure Mean 100 Pulse Ox 96 Oxygen Delivery Method Room Air Positive well nourished General Appearance ED: NAD HEENT Reports TM's clear HEENT Narrative: 1 cm laceration to the lobe of the right ear. Minimal bleeding. No facial bruising. No jaw malocclusion. Tympanic Membrane ED: Yes TM's clear Eyes PERRL and EOMs intact bilaterally Chest Wall inspection of chest normal Resp normal respiratory effort and clear to auscultation bilaterally Cardio regular rhythm GI normal to inspection, nondistended, normoactive bowel sounds Back/Spine normal to inspection Neuro Sensorium / Orientation: alert Psych Psych Narrative: Patient mental status at baseline. Skin Skin Narrative: Laceration as described above MDM MDM MDM Narrative Medical decision making narrative: Patient has a small laceration to the right ear. His feels he is acting at baseline. Laceration is very small and I think is amenable to gluing. I also counseled the patient's family that this was likely going to heal by secondary intention. It was cleaned by nursing and then I was able to approximate this with skin glue. Family counseled on wound care. Impression: 1. 1 cm regular left Discharge Plan Triage Chief Complaint: Laceration ED Provider: Zen Radford Dx/Rx/DC Orders Prescriptions: No Action amlodipine 5 mg tablet 5 mg PO DAILY omeprazole magnesium 20 mg tablet,delayed release (DR/EC) 20 mg PO DAILY Label Comments: as directed as directed atorvastatin 10 mg tablet 10 mg PO DAILY tamsulosin 0.4 mg capsule 0.4 mg PO DAILY aspirin 81 mg tablet,delayed release (DR/EC) 81 mg PO DAILY Label Comments: as directed as directed finasteride 5 mg tablet 5 mg PO DAILY meloxicam 15 mg tablet 15 mg PO DAILY escitalopram oxalate 10 mg tablet 10 mg PO QHS loperamide 2 mg capsule 2 mg PO .COMPLEX PRN (Reason: Diarrhea) Rx Instructions: 2 mg PO PRN administer after each loose stool until symptoms controlled; do not exceed 8 mg per 24 hrs magnesium hydroxide [Milk of Magnesia] 400 mg/5 mL suspension 30 ml PO DAILY PRN (Reason: Constipation) mirtazapine 15 mg tablet 15 mg PO QHS loratadine [Claritin] 10 mg tablet 10 mg PO DAILY Gemtesa 75 mg tablet 75 mg PO DAILY acetaminophen [Tylenol] 325 mg capsule 650 mg PO ONCE PRN (Reason: Fever) Rx Instructions: Give 2 tablet by mouth every 4 hours as needed for elevated temperature acetaminophen [Tylenol] 325 mg capsule 650 mg PO ONCE PRN (Reason: Pain) Rx Instructions: Give 2 tablets by mouth every 4 hours as needed for pain carbidopa-levodopa [Sinemet] 25-100 mg tablet 2 tab PO .QID Qty: 240 2RF donepezil 10 mg tablet 10 mg PO QHS Qty: 30 0RF Primary Care Provider: Josef Silverman Referrals: Josef Silverman MD [Primary Care Provider] - Disposition Disposition: Home, Self Care
[2021-12-18 06:13] VITALS: BP 135/74
== END 2021-12-18 06:13 | disposition home or self-care (01) ==
PROVIDERS: Emergency Provider Student in an Organized Health Care Education/Training Program; PCP Family Medicine; Visit Provider Student in an Organized Health Care Education/Training Program
DX: S01.311A Laceration without foreign body of right ear, initial encounter (principal); G20 Parkinson's disease; F02.80 Dementia in other diseases classified elsewhere, unspecified severity, without behavioral disturbance, psychotic disturbance, mood disturbance, and anxiety; G31.01 Pick's disease; F33.9 Major depressive disorder, recurrent, unspecified; E78.5 Hyperlipidemia, unspecified; I10 Essential (primary) hypertension; K21.9 Gastro-esophageal reflux disease without esophagitis; M19.90 Unspecified osteoarthritis, unspecified site; Z87.891 Personal history of nicotine dependence; W19.XXXA Unspecified fall, initial encounter; Z79.899 Other long term (current) drug therapy
CPT/HCPCS: 99282

== ENCOUNTER → 2022-01-15 | Outpatient (REF) | payer MEDICARE, BC, SELFPAY ==
[2022-01-15 08:57] LABS: Hematocrit 38.2 % (40-54); Hemoglobin 12.7 g/dL (13.0-16.5); Mean Corp Hgb Conc 33.2 g/dL (32-36); Mean Corpuscular Hgb 32.2 pg (27.0-32.0); Mean Corpuscular Volume 96.7 fL (80-94); Mean Platelet Vol. 11.1 fl (6.2-12.0); Platelet Count 173 K/mm3 (150-450); RBC Distribution Width CV 12.9 % (11.6-14.6); RBC Distribution Width SD 45.5 fl (35.1-43.9); Red Blood Count 3.95 M/mm3 (4.6-6.2)
[2022-01-15 09:21] LABS: Vitamin B12 225 pg/mL (211-911); Vitamin D,25 Hydroxy 14.5 ng/mL
[2022-01-15 09:32] LABS: AST(SGOT) 17 U/L (15-37); Alanine Aminotransfer ALT/SGPT 24 U/L (16-61); Albumin, Serum 3.3 g/dL (3.2-5.0); Alkaline Phosphatase 137 U/L (45-117); Anion Gap 2 (5-15); BUN 11 mg/dL (7-18); BUN/Creat Ratio 13.7 RATIO (10-20); Calcium,Total 8.5 mg/dL (8.5-10.1); Chloride 110 mmol/L (98-107); Cholesterol 142 mg/dL (200); EST Glomerular Filtration Rate 99 mL/min (>60); Est Glom Filt Rate - Afr Amer 119 mL/min (>60); Globulin 3.3 g/dL (2.2-4.2); Glucose 93 mg/dL (74-106); High Density Lipoprotein 66 mg/dL; Protein, Total 6.6 g/dL (6.4-8.2); Sodium Level 141 mmol/L (136-145); Triglycerides 88 mg/dL; Very Low Density Lipoprotein 18 mg/dL (5-40)
== END ==
LOC: OLS.DANBUR 05:00
PROVIDERS: PCP Family Medicine
DX: I10 Essential (primary) hypertension (principal); G20 Parkinson's disease; F02.81 Dementia in other diseases classified elsewhere, unspecified severity, with behavioral disturbance; F33.9 Major depressive disorder, recurrent, unspecified; E78.5 Hyperlipidemia, unspecified; N40.0 Benign prostatic hyperplasia without lower urinary tract symptoms
CPT/HCPCS: 36415; 80053; 80061; 82306; 82607; 82746; 85027

== ENCOUNTER → 2022-04-09 | Outpatient (REF) | payer MEDICARE, BC, SELFPAY ==
[2022-04-09 10:16] LABS: Vitamin D,25 Hydroxy 60.5 ng/mL
== END ==
LOC: OLS.DANBUR 05:00
PROVIDERS: PCP Family Medicine; Visit Provider Family Medicine
DX: E55.9 Vitamin D deficiency, unspecified (principal); Z79.899 Other long term (current) drug therapy
CPT/HCPCS: 36415; 82306

== ENCOUNTER 2022-08-14 18:44 | Emergency (ER) | payer MEDICARE, BC, SELFPAY ==
[2022-08-14 18:45] VITALS: BP 153/85; PULSE 80; RESP 18; TEMP 36.2; O2SAT 94; BMI 23.9
[2022-08-14 18:52] VITALS: BP 153/85; PULSE 80; RESP 18; TEMP 36.2; O2SAT 95
--- NOTE | 2022-08-14 19:06 | CT_ITS ---
STUDY: CT BRAIN WITHOUT CONTRAST REASON FOR EXAM: Male, 77 years old. Trauma RADIATION DOSAGE (If Supplied By Facility): CTDIvol = ( 44.99 ) mGy, DLP = ( 947.97 ) mGycm TECHNIQUE: Transaxial CT imaging of the brain was performed without administration of intravenous contrast material. Individualized dose optimization techniques were used for this CT. COMPARISON: CT brain September 27, 2021 FINDINGS: Normal soft tissue structures. Normal calvarium. There is mild cerebral atrophy with widening of the extra-axial spaces and ventricular dilatation. There are areas of decreased attenuation within the white matter tracts of the supratentorial brain, consistent with microvascular disease changes. Normal basal ganglia and thalami. Normal brainstem. Normal cerebellum. Intracranial atherosclerosis. There is no intracranial hemorrhage. There are no findings of an acute ischemic infarction. Air-fluid levels in maxillary sinuses bilaterally. CT/Brain/Head without Contrast IMPRESSION: Bilateral maxillary sinusitis. Chronic involutional changes. Electronically Signed: Damon Mcfadden MD at 20:35 EST ,
--- NOTE | 2022-08-14 19:06 | CT_ITS ---
We are attempting to reach an attending provider to discuss findings. An addendum with communication details will be sent when the communication is complete. STUDY: CT CERVICAL SPINE WITHOUT CONTRAST REASON FOR EXAM: Male, 77 years old. Trauma RADIATION DOSAGE (If Supplied By Facility): CTDIvol = ( 23.37 ) mGy, DLP = ( 459.53 ) mGycm TECHNIQUE: High resolution transaxial imaging was performed without contrast material. Sagittal and coronal images were reconstructed. Individualized dose optimization techniques were used for this CT. COMPARISON: None FINDINGS: Normal craniovertebral junction. Normal anterior atlantoaxial articulation. Normal odontoid process. There is reversal of the normal cervical lordosis. Normal vertebral bodies and posterior osseous elements. C2-3: Normal endplates. Normal disc height and morphology. Normal central canal and intervertebral neuroforamina. C3-4: Normal endplates. Normal disc height and morphology. Normal central canal and intervertebral neuroforamina. C4-5: Normal endplates. Normal disc height and morphology. Normal central canal and intervertebral neuroforamina. C5-6: Normal endplates. Normal disc height and morphology. Normal central canal and intervertebral neuroforamina. C6-7: Normal endplates. Normal disc height and morphology. Normal central canal and intervertebral neuroforamina. C7-T1: Normal endplates. Normal disc height and morphology. Normal central canal and intervertebral neuroforamina. Incompletely well corticated healing fracture spinous process C7. Normal visualized soft tissue structures. Ossification ligamentum nuchae. Spondylosis. Anterior wedging T1. No significant retropulsion. CT/Spine Cervical without Contras IMPRESSION: Compression fracture T1, age indeterminate. Incompletely healed subacute fracture spinous process C7. Recommend MRI C-spine and T-spine. Electronically Signed: Damon Mcfadden MD at 20:49 EST ,
--- NOTE | 2022-08-14 19:08 | ED.VIS.FALL ---
HPI HPI - Fall History of Present Illness Chief Complaint: Fall Informant: patient and spouse/S.O. Narrative Narrative: Patient presents after a fall at [facility]. He had told his that he hit his head falling out of the wheelchair. I have no reported loss of consciousness. His tetanus is reportedly up-to-date. His states he is acting his normal. 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 He is at baseline. He was diagnosed with COVID earlier in the week and is about 5 days in. He has been doing actually quite well with it. He has an occasional cough and some runny nose but no vomiting or diarrhea. No confusion or change in mental status. He is not on any blood thinners other than baby aspirin. He has had falls with lacerations to his scalp and been stapled or sutured many times in the past. [facility] Medical History Arthritis Cataracts, bilateral Dementia Dementia in other diseases classified elsewhere without behavioral disturbance Essential (primary) hypertension Gastro-esophageal reflux disease without esophagitis Hyperlipidemia, unspecified Major depressive disorder, recurrent, unspecified Parkinsonism Primary progressive aphasia Prostate disorder Seasonal allergies Home Medications amlodipine 5 mg tablet 5 mg PO DAILY 07/05/20 [History Last Taken Unknown] finasteride 5 mg tablet 5 mg PO DAILY 07/05/20 [History Last Taken Unknown] meloxicam 15 mg tablet 15 mg PO DAILY 07/05/20 [History Last Taken Unknown] omeprazole magnesium 20 mg tablet,delayed release 20 mg PO DAILY 07/05/20 [History Last Taken Unknown] tamsulosin 0.4 mg capsule 0.4 mg PO DAILY 07/05/20 [History Last Taken Unknown] escitalopram oxalate 10 mg tablet 10 mg PO QHS 12/30/20 [History Last Taken Unknown] mirtazapine 15 mg tablet 15 mg PO QHS 12/30/20 [History Last Taken Unknown] acetaminophen 325 mg capsule (Tylenol) 650 mg PO ONCE PRN Fever 03/04/21 [History Last Taken Unknown] acetaminophen 325 mg capsule (Tylenol) 650 mg PO ONCE PRN Pain 03/04/21 [History Last Taken Unknown] carbidopa 25 mg-levodopa 100 mg tablet (Sinemet) 2 tab PO .QID #240 tabs 04/03/21 [Rx Last Taken Unknown] loratadine 10 mg tablet (Claritin) 10 mg PO DAILY 08/14/22 [History Last Taken Unknown] Allergy/AdvReac Type Severity Reaction Status Date / Time No Known Allergies Allergy Verified 09/04/21 13:27 Family History Father Alcoholism Grandfather Alcoholism Mother CVA (cerebral vascular accident), Onset Age: 84 Other Arthritis Hypertension Surgical History History of tonsillectomy Social History Smoking Status: Former smoker how long ago did patient quit smoking: Quit in 1976 alcohol intake: current alcohol intake frequency: holidays/special occasions only substance use type: does not use ROS ROS ED ROS Narrative History is limited because the patient is nonverbal. But he can communicate yes and no answers. Also, his knows him well and knows his history and recent events quite well. Constitutional Constitutional ED: Denies chills or fever(s) Eyes Eyes: Denies change in vision ENT ENT ED: Reports rhinorrhea; Denies sore throat Respiratory/Chest Respiratory/Chest: Denies dyspnea Gastrointestinal Gastrointestinal: Denies diarrhea or vomiting Musculoskeletal Musculoskeletal: Denies arthralgias or neck pain Integumentary Reports other Details: Laceration above left eyebrow Hematologic/Lymphatic Hematologic/Lymphatic: Denies easy bleeding or easy bruising EXAM Physical Exam Narrative Exam Narrative: Patient is awake alert sitting calmly in bed. He is holding his 's hand. Although he is nonverbal he does seem very aware of what is going on. HEENT does show a 2.5 cm laceration above the left eyebrow. There is some dried blood in the area but no active bleeding. I feel no step-off. I can see scars from other lacerations up further on his scalp. These are well-healed and not new. Mucous membranes are moist. I see no injury inside of his mouth. No epistaxis or nasal tenderness. No facial tenderness. Eyes show no subconjunctival hemorrhage Neck is somewhat stiff but does not appear to be tender. However, with the patient being nonverbal we will image this to make sure there is not an injury. Lungs are clear bilaterally. His saturations are about 95% on room air showing no hypoxia the entire time in the room. His breathing is easy and unlabored. I hear no wheezes or rhonchi. Heart is regular. Has a rate about 80-85. I hear no murmur. Pulses are normal. There is no chest wall tenderness. Abdomen is soft and nontender. I see no bruising. Extremities show no obvious tenderness. There is some bruising on the dorsum of his left first and second metacarpal region. But it looks older. His states that is from before. It is not tender. There is no swelling. There is no deformity. When I press on his pelvis at first I thought I got a little discomfort on the left but then it did not seem like it was tender. I will get an image across this area to be thorough. Neurologically patient is at his baseline per his . Const Vital Signs: 08/14/22 18:45 08/14/22 18:52 08/14/22 18:52 Temperature 97.2 F L 97.2 F L Temperature Source Temporal Temporal Pulse Rate 80 80 80 Respiratory Rate 18 18 18 Respiratory Effort Respiratory Depth Respiratory Pattern Blood Pressure 153/85 H 153/85 H 153/85 H Blood Pressure Mean 107 107 107 Pulse Ox 94 95 95 Oxygen Delivery Method Room Air Room Air Room Air 08/14/22 18:54 08/14/22 21:14 08/14/22 21:14 Temperature 97.8 F Temperature Source Temporal Pulse Rate 84 84 Respiratory Rate 18 18 Respiratory Effort Normal Non-Labored Respiratory Depth Normal Respiratory Pattern Normal Blood Pressure 168/91 H 168/91 H Blood Pressure Mean 116 116 Pulse Ox 96 96 Oxygen Delivery Method Room Air Room Air MDM MDM MDM Narrative Medical decision making narrative: See procedure/laceration section. After I cleaned off his face nose. I did find a small stellate skin tear on the bridge of the nose that does not need suturing. I showed this to the and she agrees. We also found a small tear of the skin lateral to the left eye that was about 1 cm long. I cleaned and scrub this but could not get it to open. My initial impression was that we would use Dermabond but it does not open so I do not think it needs suturing. is fine with this plan also. My independent interpretation the CT scan of the head shows no acute process. Final reading by radiology is bilateral maxillary sinusitis with chronic involutional changes. My TURP rotation of the single AP pelvis showed no fracture or dislocation. Final reading by radiology was similar. My independent interpretation the CT scan of his cervical spine shows significant DJD and near fusion of some of the lower vertebra. However I do not see any sign of acute fracture or anterior soft tissue swelling. There does appear to be a Nonunion of C7 spinous process. Final reading is pending at this time. CT scan of the C-spine was read by radiology as Compression fracture T1, age indeterminate. Incompletely healed subacute fracture spinous process C7. Recommend MRI C-spine and T-spine. I talked with the patient and his about this. He is not having pain in that area. She states he had a lot of images before when he had some rib fractures and spine fractures. She thinks this is old. Since he is asymptomatic they really do not want further imaging or MRI. They would like to get him back to his nursing facility. Considering these details, I think this is reasonable Radiography Diagnostic Testing: Clinical Impression(s) from Imaging Studies Brain CT 08/14/22 19:06 IMPRESSION: Bilateral maxillary sinusitis. Chronic involutional changes. Electronically Signed: Damon Mcfadden MD at 20:35 EST , Cervical Spine CT 08/14/22 19:06 IMPRESSION: Compression fracture T1, age indeterminate. Incompletely healed subacute fracture spinous process C7. Recommend MRI C-spine and T-spine. Electronically Signed: Damon Mcfadden MD at 20:49 EST , ADDENDUM: 08/14/222110 IMPRESSION: Compression fracture T1, age indeterminate. Incompletely healed subacute fracture spinous process C7. Recommend MRI C-spine and T-spine. N.B. : The above Results were Read Back by Damon Mcfadden MD to RYAN POPE MD, and understanding confirmed on 08/14/2022 21:04:18 (ET). Electronically Signed: Damon Mcfadden MD at 20:49 EST Reading Location ID and State: [address] [place] [address] , Service support , Pelvis X-Ray 08/14/22 19:50 IMPRESSION: Normal x-ray examination of the pelvis. Electronically Signed: Damon Mcfadden MD at 20:42 EST Reading Location ID and State: [address] [place] [address] , Service support , Procedures Lacerations Left forehead: Length: 2.5 cm Depth: Skin Shape: Linear Prep: Sterile Conditions and Shure-Clens Laceration repair: Irrigated, Lidocaine with epi, Local and Wound explored Irrigated (ml): 50 Number of Sutures/Dixon: 5 Suture Information: Ethilon and 6-0 Comment: There is cleaned and irrigated. Sutured with five 6-0 Ethilon with good cosmesis and hemostasis and patient tolerated this well. I had applied LET on the wound prior but did use about 2 cc of lidocaine with epinephrine locally. Discharge Plan Triage Chief Complaint: Fall ED Provider: Ryan Pope Dx/Rx/DC Orders Clinical Impression: Fall at [facility], Forehead laceration, Sutured skin wound Instructions: ED Laceration: All Closures Prescriptions: No Action amlodipine 5 mg tablet 5 mg PO DAILY omeprazole magnesium 20 mg tablet,delayed release (DR/EC) 20 mg PO DAILY Label Comments: as directed as directed tamsulosin 0.4 mg capsule 0.4 mg PO DAILY finasteride 5 mg tablet 5 mg PO DAILY meloxicam 15 mg tablet 15 mg PO DAILY escitalopram oxalate 10 mg tablet 10 mg PO QHS mirtazapine 15 mg tablet 15 mg PO QHS acetaminophen [Tylenol] 325 mg capsule 650 mg PO ONCE PRN (Reason: Fever) Rx Instructions: Give 2 tablet by mouth every 4 hours as needed for elevated temperature acetaminophen [Tylenol] 325 mg capsule 650 mg PO ONCE PRN (Reason: Pain) Rx Instructions: Give 2 tablets by mouth every 4 hours as needed for pain loratadine [Claritin] 10 mg Tablet 10 mg PO DAILY carbidopa-levodopa [Sinemet] 25-100 mg tablet 2 tab PO .QID Qty: 240 2RF Primary Care Provider: John Rizo Referrals: Josef Silverman MD [Non-Staff] - 5 Days for suture removal Disposition Disposition: Senior Living Facility
[2022-08-14] MEDS: Lidocaine/Epi/Tetracaine 50 ML 1 APPLIC TOPICAL (19:12)
[2022-08-14] MEDS: Lidocaine 2% /Epi 1:100 (50ml) 50 ML Vial INFILT (19:21)
--- NOTE | 2022-08-14 19:50 | RAD_ITS ---
STUDY: X-RAY - PELVIS REASON FOR EXAM: Male, 77 years old. Trauma TECHNIQUE: One view of the pelvis was obtained. COMPARISON: None. FINDINGS: There is a non-specific bowel gas pattern. Normal visualized soft tissue structures. Normal bilateral iliac wings, sacroiliac joints and visualized sacrum. Normal visualized bilateral superior and inferior pubic rami. Normal pubic symphysis. Normal ischial tuberosities. Normal visualized right femoral head. Normal right acetabulum. Normal right hip joint. Normal visualized left femoral head. Normal left acetabulum. Normal left hip joint. RAD/Pelvis 1 or 2 Views IMPRESSION: Normal x-ray examination of the pelvis. Electronically Signed: Damon Mcfadden MD at 20:42 EST ,
[2022-08-14 21:14] VITALS: BP 168/91; PULSE 84; RESP 18; TEMP 36.6; O2SAT 96
--- NOTE | 2022-08-14 22:08 | ED.RN ---
called [facility] to inform of pt's return
== END 2022-08-14 22:08 | disposition skilled nursing facility (03) ==
PROVIDERS: Emergency Provider Emergency Medicine; PCP Family Medicine; Visit Provider Emergency Medicine
DX: S01.112A Laceration without foreign body of left eyelid and periocular area, initial encounter (principal); M48.54XA Collapsed vertebra, not elsewhere classified, thoracic region, initial encounter for fracture; E78.5 Hyperlipidemia, unspecified; Z87.891 Personal history of nicotine dependence; M47.812 Spondylosis without myelopathy or radiculopathy, cervical region; J32.0 Chronic maxillary sinusitis; I10 Essential (primary) hypertension; W05.0XXA Fall from non-moving wheelchair, initial encounter; Y92.129 Unspecified place in nursing home as the place of occurrence of the external cause
CPT/HCPCS: 12011; 70450; 72125; 72170; 99284

== ENCOUNTER 2022-09-16 11:40 | Emergency (ER) | payer MEDICARE, BC, SELFPAY ==
[2022-09-16 11:41] VITALS: BP 160/90; PULSE 76; RESP 15; TEMP 36.6; O2SAT 96; BMI 27.1
--- NOTE | 2022-09-16 11:49 | CT_ITS ---
STUDY: CT BRAIN WITHOUT CONTRAST REASON FOR EXAM: Male, 77 years old. Headache after trauma RADIATION DOSAGE (If Supplied By Facility): CTDIvol = ( 23.66 ) mGy, DLP = ( 483.08 ) mGycm TECHNIQUE: Transaxial CT imaging of the brain was performed without administration of intravenous contrast material. Individualized dose optimization techniques were used for this CT. COMPARISON: 08/14/2022 FINDINGS: Normal soft tissue structures. Normal calvarium. There is mild cerebral atrophy with widening of the extra-axial spaces and ventricular dilatation. There are areas of decreased attenuation within the white matter tracts of the supratentorial brain, consistent with microvascular disease changes. Normal basal ganglia and thalami. Normal brainstem. There is mild cerebellar atrophy. There is no intracranial hemorrhage. There are no findings of an acute ischemic infarction. Normal visualized paranasal sinuses. CT/Brain/Head without Contrast IMPRESSION: Chronic involutional changes of the brain., No acute hemorrhage Electronically Signed: Aron Yang MD at 12:38 EDT ,
--- NOTE | 2022-09-16 11:51 | EX.ED.GENINJ ---
HPI History of Present Illness Chief Complaint: Head Injury Informant: patient, spouse/S.O. and EMS Onset/Context/Timing Onset: Today (Just prior to arrival by EMS) Mechanism/Context: Fall Narrative Narrative: Patient is a hospice patient in assisted living wheelchair-bound because of multiple progressive neurologic issues, who tried to get out of his wheelchair and walk or transition on his own today which he is unable to do safely without assistance, and as result had an unwitnessed fall and appears according to spouse that he likely struck his head on a nearby console table. Obvious wound to the left scalp. He has otherwise been at baseline according to her who is at the bedside. He used to be on a blood thinner but no longer is because of his fall risk/history. Patient is aphasic, he is able to give thumbs up and thumbs down for yes/no to questions, he basically gives thumbs down for pain, but he does indicate that his laceration is sore/painful. Tetanus Immunization: <5 years [facility] Medical History (Updated 09/16/22 @ 14:[address] Guanaco Jerome MD) Arthritis Cataracts, bilateral Dementia Dementia in other diseases classified elsewhere without behavioral disturbance Essential (primary) hypertension Gastro-esophageal reflux disease without esophagitis Hyperlipidemia, unspecified Major depressive disorder, recurrent, unspecified Parkinsonism Primary progressive aphasia Progressive supranuclear palsy Prostate disorder Seasonal allergies Home Medications amlodipine 5 mg tablet 5 mg PO DAILY 07/05/20 [History Last Taken Unknown] finasteride 5 mg tablet 5 mg PO DAILY 07/05/20 [History Last Taken Unknown] meloxicam 15 mg tablet 15 mg PO DAILY 07/05/20 [History Last Taken Unknown] omeprazole magnesium 20 mg tablet,delayed release 20 mg PO DAILY 07/05/20 [History Last Taken Unknown] tamsulosin 0.4 mg capsule 0.4 mg PO DAILY 07/05/20 [History Last Taken Unknown] escitalopram oxalate 10 mg tablet 10 mg PO QHS 12/30/20 [History Last Taken Unknown] mirtazapine 15 mg tablet 15 mg PO QHS 12/30/20 [History Last Taken Unknown] acetaminophen 325 mg capsule (Tylenol) 650 mg PO ONCE PRN Fever 03/04/21 [History Last Taken Unknown] acetaminophen 325 mg capsule (Tylenol) 650 mg PO ONCE PRN Pain 03/04/21 [History Last Taken Unknown] carbidopa 25 mg-levodopa 100 mg tablet (Sinemet) 2 tab PO .QID #240 tabs 04/03/21 [Rx Last Taken Unknown] loratadine 10 mg tablet (Claritin) 10 mg PO DAILY 08/14/22 [History Last Taken Unknown] Allergy/AdvReac Type Severity Reaction Status Date / Time No Known Allergies Allergy Verified 09/16/22 11:43 Family History Father Alcoholism Grandfather Alcoholism Mother CVA (cerebral vascular accident), Onset Age: 84 Other Arthritis Hypertension Surgical History History of tonsillectomy Social History (Updated 09/16/22 @ 11:[address] Guanaco Jerome MD) housing: assisted living facility Smoking Status: Former smoker how long ago did patient quit smoking: Quit in 1976 alcohol intake: current alcohol intake frequency: holidays/special occasions only substance use type: does not use ROS ROS ED Review of Systems ROS Unobtainable: other Details: Due to some dementia and complete aphasia EXAM Physical Exam Const Vital Signs: 09/16/22 11:41 09/16/22 11:46 09/16/22 13:50 Temperature 97.8 F Temperature Source Temporal Pulse Rate 76 Respiratory Rate 15 16 Respiratory Effort Normal Non-Labored Respiratory Pattern Normal Blood Pressure 160/90 H Blood Pressure Mean 113 Pulse Ox 96 Oxygen Delivery Method Room Air Positive well nourished and well developed General Appearance ED: well developed and NAD HEENT Reports nasal mucous membranes and turbinates normal HEENT Narrative: Trauma left parietal scalp where there is a large flap laceration in a C shape, there is no crepitance or depression or large hematoma. Minimal active bleeding, is not bleeding through dressing that is left in place after examination. The periosteum is visible and appears intact throughout the course of the laceration, the galea is attached to the flap. Face and Sinus: Negative for facial tenderness Eyes PERRL and EOMs intact bilaterally Visual Acuity: other Other Details: no apparent entrapment or pain with extraocular movements Neck full ROM and supple General: Negative for tenderness Chest Wall inspection of chest normal and palpation of chest normal Chest: symmetrical chest wall rise; Negative for crepitus or tenderness Resp normal respiratory effort and clear to auscultation bilaterally Percussion: other equal BS bilat Cardio Rate: regular rate; Negative for tachycardic Rhythm: regular rhythm GI normal to inspection, nondistended, normoactive bowel sounds, soft to palpation and non-tender Back/Spine normal ROM Cervical Spine: Negative for cervical spine tenderness Thoracic Spine / Upper Back: Negative for thoracic spinal tenderness Lumbar Spine / Lower Back: Negative for lumbar spinal tenderness Extremity normal to inspection and full ROM Extremity Narrative: No pain with passive full range of motion of both lower extremities, can actively lift his arms over his head without any apparent pain. Gives thumbs down when asked if anything is painful in his lower extremities with moving. General Extremety ED: Negative for tenderness Neuro CN's II-XII intact bilaterally, moves all extremities, no focal motor deficits and no sensory deficits noted Neuro Narrative: Aphasic. At baseline per spouse. Sensorium / Orientation: awake and alert Skin Skin Narrative: 16 cm mostly linear but fairly irregular flap C-shaped wound without apparent tissue loss left parietal scalp, widely gaping open. Clean-appearing without obvious gross contamination. Lesions: no lesions Rashes: no rashes PROC Procedures Lacerations L parietal scalp: Length: 16 cm Depth: Fascia Shape: Flap Prep: Sterile Conditions and Chlorhexadine Laceration repair: Irrigated, Lidocaine with epi (1%, 6cc), Local and Skin sutures (stuart) Irrigated (ml): 100 Number of Sutures/[place]: 17 Comment: tolerated well, no complications, no tissue loss; good skin edge apposition, good hemostasis MDM MDM MDM Narrative Medical decision making narrative: CT of the head was obtained, I reviewed the images, does not appear to be any skull fracture or intracranial hemorrhage, radiology in agreement and I agree with his interpretation. The patient's large flap-shaped scalp laceration was repaired. The galea was penetrated and the wound was down to the periosteum, but I do not think there will be benefit by repairing the galea separately since it took so many stuart to just repair the flap itself. Radiography Diagnostic Testing: Clinical Impression(s) from Imaging Studies Brain CT 09/16/22 11:49 IMPRESSION: Chronic involutional changes of the brain., No acute hemorrhage Electronically Signed: Aron Yang MD at 12:38 EDT , Discharge Plan Triage Chief Complaint: Head Injury ED Provider: Guanaco Jerome Dx/Rx/DC Orders Clinical Impression: Closed head injury without loss of consciousness, Laceration of scalp Instructions: ED Laceration Scalp Stitches or [place] Prescriptions: No Action amlodipine 5 mg tablet 5 mg PO DAILY omeprazole magnesium 20 mg tablet,delayed release (DR/EC) 20 mg PO DAILY Label Comments: as directed as directed tamsulosin 0.4 mg capsule 0.4 mg PO DAILY finasteride 5 mg tablet 5 mg PO DAILY meloxicam 15 mg tablet 15 mg PO DAILY escitalopram oxalate 10 mg tablet 10 mg PO QHS mirtazapine 15 mg tablet 15 mg PO QHS acetaminophen [Tylenol] 325 mg capsule 650 mg PO ONCE PRN (Reason: Fever) Rx Instructions: Give 2 tablet by mouth every 4 hours as needed for elevated temperature acetaminophen [Tylenol] 325 mg capsule 650 mg PO ONCE PRN (Reason: Pain) Rx Instructions: Give 2 tablets by mouth every 4 hours as needed for pain loratadine [Claritin] 10 mg Tablet 10 mg PO DAILY carbidopa-levodopa [Sinemet] 25-100 mg tablet 2 tab PO .QID Qty: 240 2RF Primary Care Provider: John Rizo Referrals: John Rizo MD [Primary Care Provider] - 7 Days for suture removal Disposition Disposition: Home, Self Care
[2022-09-16] MEDS: Lidocaine 1% /Epi 1:100 (20ml) 20 ML Vial INFILT (12:24)
[2022-09-16 13:50] VITALS: RESP 16
--- NOTE | 2022-09-16 14:15 | NURSING ---
CALLED [facility], ETA IS 60 TO 75 MIN
[2022-09-16 14:55] VITALS: BP 116/75; PULSE 82; RESP 18; O2SAT 98
--- NOTE | 2022-09-16 15:35 | NURSING ---
CALLED [facility], TALKED TO OMAR. TOLD [facility] IS 2 MIN AWAY
--- NOTE | 2022-09-16 15:46 | ED.RN ---
CALLED [facility] ABOUT DISPO OF PATIENT, SPOKE WITH SETH. [facility] IN ER TO TRANSPORT PT
== END 2022-09-16 15:47 | disposition home or self-care (01) ==
PROVIDERS: Emergency Provider Emergency Medicine; PCP Family Medicine; Visit Provider Emergency Medicine
DX: S01.01XA Laceration without foreign body of scalp, initial encounter (principal); Z87.891 Personal history of nicotine dependence; E78.5 Hyperlipidemia, unspecified; I10 Essential (primary) hypertension; W19.XXXA Unspecified fall, initial encounter; Y92.099 Unspecified place in other non-institutional residence as the place of occurrence of the external cause
CPT/HCPCS: 12005; 70450; 99284

== ENCOUNTER 2022-09-18 08:15 | Emergency (ER) | payer MEDICARE, BC, SELFPAY ==
[2022-09-18 08:16] VITALS: BP 166/111; PULSE 64; RESP 16; TEMP 36; O2SAT 95; BMI 31.3
--- NOTE | 2022-09-18 08:21 | CT_ITS ---
INDICATION: trauma EXAMINATION: CT BRAIN - CT Head or Brain W/O Contrast Injection TECHNIQUE: Multiple axial images were obtained of the head without intravenous contrast. A radiation dose optimization technique was used for this scan. IV Contrast dosage and agent: None. RADIATION DOSAGE (If Supplied By Facility): CTDIvol = ( 44.99 ) mGy, DLP = ( 897.35 ) mGycm COMPARISON: September 16, 2022 FINDINGS: BRAIN PARENCHYMA: No intra- or extra-axial hemorrhage. There are nonspecific low attenuation foci within the white matter of the cerebral hemispheres with an appearance suggestive of small vessel ischemia. No evidence of acute infarct. No intracranial mass or mass effect. There is preservation of the maya/white matter interface. Posterior fossa structures are unremarkable. CSF SPACES: Appropriate for age. No hydrocephalus. Basal cisterns are patent. CALVARIUM, SKULL BASE, PARANASAL SINUSES AND MASTOID AIR CELLS: Clear. No discrete lytic or blastic abnormalities. ORBITS: Both globes, extraocular muscles, optic nerves and retrobulbar fat appear unremarkable. There is soft tissue irregularity, subcutaneous air and surgical stuart overlying the left calvarium system with recent trauma. ASPECTS Score for Acute Strokes: 10 CT/Brain/Head without Contrast IMPRESSION: No acute intracranial process. Small vessel ischemia. Electronically Signed: Diane Rayo MD at 8:59 EDT ,
--- NOTE | 2022-09-18 08:23 | EDS_ITS ---
HPI History of Present Illness Chief Complaint: Laceration Informant: patient, family and EMS Narrative Narrative: Patient was seen here 2 days ago for a scalp laceration after a fall, and had been doing fine since then until he was at breakfast this morning at assisted living, family states they think he dropped something and bent over to pick it up and fell out of his chair, forward hitting his head on the ground, ripping out most of the radha that we placed 2 days ago. He has had no vomiting. He is chronically aphasic, and he is at his baseline mental status according to family who is here with him. No other apparent injury. [facility] Medical History Arthritis Cataracts, bilateral Dementia Dementia in other diseases classified elsewhere without behavioral disturbance Essential (primary) hypertension Gastro-esophageal reflux disease without esophagitis Hyperlipidemia, unspecified Major depressive disorder, recurrent, unspecified Parkinsonism Primary progressive aphasia Progressive supranuclear palsy Prostate disorder Seasonal allergies Home Medications amlodipine 5 mg tablet 5 mg PO DAILY 07/05/20 [History Last Taken Unknown] finasteride 5 mg tablet 5 mg PO DAILY 07/05/20 [History Last Taken Unknown] meloxicam 15 mg tablet 15 mg PO DAILY 07/05/20 [History Last Taken Unknown] omeprazole magnesium 20 mg tablet,delayed release 20 mg PO DAILY 07/05/20 [History Last Taken Unknown] tamsulosin 0.4 mg capsule 0.4 mg PO DAILY 07/05/20 [History Last Taken Unknown] escitalopram oxalate 10 mg tablet 10 mg PO QHS 12/30/20 [History Last Taken Unknown] mirtazapine 15 mg tablet 15 mg PO QHS 12/30/20 [History Last Taken Unknown] acetaminophen 325 mg capsule (Tylenol) 650 mg PO ONCE PRN Fever 03/04/21 [History Last Taken Unknown] acetaminophen 325 mg capsule (Tylenol) 650 mg PO ONCE PRN Pain 03/04/21 [History Last Taken Unknown] carbidopa 25 mg-levodopa 100 mg tablet (Sinemet) 2 tab PO .QID #240 tabs 04/03/21 [Rx Last Taken Unknown] loratadine 10 mg tablet (Claritin) 10 mg PO DAILY 08/14/22 [History Last Taken Unknown] Allergy/AdvReac Type Severity Reaction Status Date / Time No Known Allergies Allergy Verified 09/16/22 11:43 Family History Father Alcoholism Grandfather Alcoholism Mother CVA (cerebral vascular accident), Onset Age: 84 Other Arthritis Hypertension Surgical History History of tonsillectomy Social History housing: assisted living facility Smoking Status: Former smoker how long ago did patient quit smoking: Quit in 1976 alcohol intake: current alcohol intake frequency: holidays/special occasions only substance use type: does not use ROS ROS ED Review of Systems ROS Unobtainable: other Details: Aphasic EXAM Physical Exam Const Vital Signs: 09/18/22 08:16 Temperature 96.8 F L Temperature Source Axillary Pulse Rate 64 Respiratory Rate 16 Blood Pressure 166/111 H Blood Pressure Mean 129 Pulse Ox 95 Oxygen Delivery Method Room Air Positive well nourished and well developed General Appearance ED: well developed and NAD HEENT Reports nasal mucous membranes and turbinates normal HEENT Narrative: 16 cm flap c-shaped left parietal scalp laceration, re-opened without any additional injury. No crepitance or depression. The flap does not peel back like it did 2 days ago, it is just along the skin lines and most of the radha are missing but some of them are intact, but not across the wound itself. trauma and tenderness Face and Sinus: Negative for facial tenderness Eyes PERRL and EOMs intact bilaterally Visual Acuity: other Other Details: no entrapment or pain with extraocular movements Neck full ROM and supple General: Negative for tenderness Chest Wall inspection of chest normal and palpation of chest normal Chest: symmetrical chest wall rise; Negative for crepitus or tenderness Resp normal respiratory effort and clear to auscultation bilaterally Percussion: other equal BS bilat Cardio no murmurs Rate: regular rate Rhythm: regular rhythm GI normal to inspection, nondistended, normoactive bowel sounds, soft to palpation and non-tender Back/Spine normal ROM Cervical Spine: Negative for cervical spine tenderness Thoracic Spine / Upper Back: Negative for thoracic spinal tenderness Lumbar Spine / Lower Back: Negative for lumbar spinal tenderness Extremity normal to inspection and full ROM General Extremety ED: Negative for tenderness Neuro CN's II-XII intact bilaterally, moves all extremities, no focal motor deficits and no sensory deficits noted Neuro Narrative: Grossly normal peripheral neurologic exam and cranial nerve exam. Aphasic. Eyes open, responds to commands, at baseline mental status per family. Sensorium / Orientation: awake and alert Psych mental status grossly normal and thought process normal Skin Skin Narrative: Scalp laceration, clean-appearing, see above Lesions: no lesions Rashes: no rashes PROC Procedures Lacerations L parietal scalp: Length: 16 cm Depth: Fascia (Down to but not including galea, flap) Shape: Flap Prep: Sterile Conditions and Chlorhexadine Laceration repair: Irrigated (Sterile saline), Lidocaine with epi (1%, 6 cc), Local and Skin sutures (Radha) Irrigated (ml): 120 Number of Sutures/Radha: 23 Comment: Wound repair somewhat more complicated than before due to mul tiple tears from radah being ripped out forcibly; new radha needed to be placed around in between tears in some areas, requiring more radha than before. Other Procedures Procedure(s): Staple removal: Multiple lost radha from prior repair 2 days ago, I physically removed 8 of them that were still partially attached, none of them across the wound entirely. MDM MDM MDM Narrative Medical decision making narrative: I sent the patient for CTs again, the images do not show any acute skull fracture or intracranial hemorrhage, radiology in agreement. I reviewed the report I agree with it. I repaired the wound again after irrigating it thoroughly, the flap did come back, and contrary to my prior exam, it appears that the galea is actually adherent over the periosteum, and only the first 2 layers are attached to the flap. This was evident when now I see a minor partial-thickness tear to the galea, under the flap does not require repair, the wound again was stapled shut and bandaged. Radiography Diagnostic Testing: Clinical Impression(s) from Imaging Studies Brain CT 09/18/22 08:21 IMPRESSION: No acute intracranial process. Small vessel ischemia. Electronically Signed: Diane Rayo MD at 8:59 EDT , Discharge Plan Triage Chief Complaint: Laceration ED Provider: Guanaco Jerome Dx/Rx/DC Orders Clinical Impression: Laceration of scalp, Closed head injury without loss of consciousness Instructions: ED Laceration Scalp Stitches or Radha Prescriptions: No Action amlodipine 5 mg tablet 5 mg PO DAILY omeprazole magnesium 20 mg tablet,delayed release (DR/EC) 20 mg PO DAILY Label Comments: as directed as directed tamsulosin 0.4 mg capsule 0.4 mg PO DAILY finasteride 5 mg tablet 5 mg PO DAILY meloxicam 15 mg tablet 15 mg PO DAILY escitalopram oxalate 10 mg tablet 10 mg PO QHS mirtazapine 15 mg tablet 15 mg PO QHS acetaminophen [Tylenol] 325 mg capsule 650 mg PO ONCE PRN (Reason: Fever) Rx Instructions: Give 2 tablet by mouth every 4 hours as needed for elevated temperature acetaminophen [Tylenol] 325 mg capsule 650 mg PO ONCE PRN (Reason: Pain) Rx Instructions: Give 2 tablets by mouth every 4 hours as needed for pain loratadine [Claritin] 10 mg Tablet 10 mg PO DAILY carbidopa-levodopa [Sinemet] 25-100 mg tablet 2 tab PO .QID Qty: 240 2RF Primary Care Provider: John Rizo Referrals: John Rizo MD [Primary Care Provider] - 7 Days for suture removal Disposition Disposition: Assisted Living
[2022-09-18] MEDS: Lidocaine 1% /Epi 1:100 (20ml) 20 ML Vial INFILT (09:44)
== END 2022-09-18 10:02 | disposition home or self-care (01) ==
PROVIDERS: Emergency Provider Emergency Medicine; PCP Family Medicine; Visit Provider Emergency Medicine
DX: S01.01XA Laceration without foreign body of scalp, initial encounter (principal); Z87.891 Personal history of nicotine dependence; I10 Essential (primary) hypertension; E78.5 Hyperlipidemia, unspecified; W19.XXXA Unspecified fall, initial encounter
CPT/HCPCS: 12005; 70450; 99285

== ENCOUNTER 2023-02-03 15:07 | Emergency (ER) | payer MEDICARE, BC, SELFPAY ==
[2023-02-03 15:09] VITALS: BP 131/116; PULSE 72; RESP 18; TEMP 36.3; O2SAT 93; BMI 23.8
--- NOTE | 2023-02-03 15:19 | CT_ITS ---
EXAM: CT CERVICAL SPINE WITHOUT INTRAVENOUS CONTRAST CLINICAL INDICATION: fall, head trauma. EXTREMELY DIFFICULT PATIENT TO IMAGE Parkinson''s disease, non-verbal, unable to straighten head/neck TECHNIQUE: Helically acquired images were obtained of the cervical spine without intravenous contrast. 2D reformatted images were reviewed. This CT exam was performed using one or more of the following dose reduction techniques: automated exposure control, adjustment of the mA and/or kV according to patient size, and/or use of iterative reconstruction technique. COMPARISON: No relevant prior studies available. FINDINGS: LIMITATIONS: The study is moderately limited due to patient''s mobility and suboptimal patient positioning. VERTEBRAE: There is a marked accentuated kyphosis of the cervical spine due to patient pathology. DISCS/SPINAL CANAL/NEURAL FORAMINA: There is disc space narrowing at C4-5, CT 7. There is right bony neural foraminal narrowing at C2-3 and C3-4. SOFT TISSUES: Unremarkable. No prevertebral soft tissue swelling. LYMPH NODES: Unremarkable. No cervical adenopathy. LUNG APICES: Unremarkable as visualized. Clear. CT/Spine Cervical without Contras IMPRESSION: 1. Limited study due to patient''s decreased mobility and suboptimal patient positioning. There are no acute osseous abnormalities. 2. Multilevel degenerative change with disc space narrowing and bony neural foraminal narrowing. Electronically Signed: Milad Emerson MD at 16:24 EDT ,
--- NOTE | 2023-02-03 15:19 | CT_ITS ---
EXAM: CT HEAD WITHOUT INTRAVENOUS CONTRAST CLINICAL INDICATION: fall, head trauma. EXTREMELY DIFFICULT PATIENT TO IMAGE Parkinson''s disease, non-verbal, unable to straighten head/neck TECHNIQUE: Multiple axial images were obtained of the head without intravenous contrast. This CT exam was performed using one or more of the following dose reduction techniques: automated exposure control, adjustment of the mA and/or kV according to patient size, and/or use of iterative reconstruction technique. COMPARISON: 09/18/2022 FINDINGS: LIMITATIONS: Study is moderately limited due to patient''s decreased mobility and suboptimal positioning. BRAIN AND EXTRA-AXIAL SPACES: There is mild enlargement of ventricular system and cortical sulci. No intra- or extra-axial hemorrhage. No evidence of acute infarct. No intracranial mass or mass effect. There is preservation of the maya/white matter interface. Posterior fossa structures are unremarkable. Basal cisterns are patent. BONES/JOINTS: Unremarkable. No discrete lytic or blastic abnormalities. SINUSES: Unremarkable as visualized. Clear. MASTOID AIR CELLS: Unremarkable. Clear. ORBITS: Visualized globes, extraocular muscles, optic nerves and retrobulbar fat appear unremarkable. CT/Brain/Head without Contrast IMPRESSION: Limited study due to patient''s decreased mobility and suboptimal positioning. There are no gross acute abnormalities identified. There is stable underlying senescent change. Electronically Signed: Milad Emerson MD at 16:22 EDT ,
--- NOTE | 2023-02-03 15:20 | ED.VIS.FALL ---
HPI HPI - Fall History of Present Illness Chief Complaint: Fall Detail of Chief Complaint: Fall with head injury Informant: patient and spouse/S.O. Narrative Narrative: Patient presents to the emergency department after sustaining a fall and hitting his head. Patient was in a chair when he fell out of his chair and struck his head. There was concern for loss of consciousness for about 3 to 4 minutes. Currently states he is back to his baseline. Patient does have history of frequent falls. Patient is aphasic and has history of Parkinson's as well as dementia. Patient is a DNR. Patient also on hospice. Patient not anticoagulated. Per he has not been ill but he has been more antsy today which is not unusual as he often gets this way. [facility] Medical History Arthritis Cataracts, bilateral Dementia Dementia in other diseases classified elsewhere without behavioral disturbance Essential (primary) hypertension Gastro-esophageal reflux disease without esophagitis Hyperlipidemia, unspecified Major depressive disorder, recurrent, unspecified Parkinsonism Primary progressive aphasia Progressive supranuclear palsy Prostate disorder Seasonal allergies Home Medications amlodipine 5 mg tablet 5 mg PO DAILY 07/05/20 [History Last Taken Unknown] finasteride 5 mg tablet 5 mg PO DAILY 07/05/20 [History Last Taken Unknown] meloxicam 15 mg tablet 15 mg PO DAILY PRN pain 07/05/20 [History Last Taken Unknown] omeprazole magnesium 20 mg tablet,delayed release 20 mg PO DAILY 07/05/20 [History Last Taken Unknown] tamsulosin 0.4 mg capsule 0.4 mg PO DAILY 07/05/20 [History Last Taken Unknown] escitalopram oxalate 10 mg tablet 20 mg PO QHS 12/30/20 [History Last Taken Unknown] mirtazapine 15 mg tablet 15 mg PO QHS 12/30/20 [History Last Taken Unknown] acetaminophen 325 mg capsule (Tylenol) 500 mg PO TID 03/04/21 [History Last Taken Unknown] acetaminophen 325 mg capsule (Tylenol) 650 mg PO ONCE PRN Pain 03/04/21 [History Last Taken Unknown] carbidopa 25 mg-levodopa 100 mg tablet (Sinemet) 2 tab PO .QID #240 tabs 04/03/21 [Rx Last Taken Unknown] loratadine 10 mg tablet (Claritin) 10 mg PO DAILY 08/14/22 [History Last Taken Unknown] cholecalciferol (vitamin D3) 50 mcg (2,000 unit) capsule (Vitamin D3) 50,000 unit PO WE 02/03/23 [History Last Taken Unknown] lorazepam 0.5 mg tablet (Ativan) 0.5 mg PO Q2H PRN anxiety 02/03/23 [History Last Taken Unknown] lorazepam 0.5 mg tablet (Ativan) 0.5 mg PO Q8H 02/03/23 [History Last Taken Unknown] polyethylene glycol 3350 17 gram oral powder packet (ClearLax) 17 g PO DAILY 02/03/23 [History Last Taken Unknown] quetiapine 25 mg tablet (Seroquel) 25 mg PO QHS 02/03/23 [History Last Taken Unknown] quetiapine 50 mg tablet (Seroquel) 50 mg PO BID 02/03/23 [History Last Taken Unknown] Allergy/AdvReac Type Severity Reaction Status Date / Time No Known Allergies Allergy Verified 02/03/23 15:12 Family History Father Alcoholism Grandfather Alcoholism Mother CVA (cerebral vascular accident), Onset Age: 84 Other Arthritis Hypertension Surgical History History of tonsillectomy Social History housing: assisted living facility Smoking Status: Former smoker how long ago did patient quit smoking: Quit in 1976 alcohol intake: current alcohol intake frequency: holidays/special occasions only substance use type: does not use ROS ROS ED ROS Narrative Head injury Review of Systems ROS Unobtainable: due to mental condition, due to mental status and other Constitutional Constitutional ED: Reports lethargy; Denies chills, fever(s), sweats or weight loss Eyes Eyes: Denies blurry vision, change in vision or diplopia ENT ENT ED: Denies rhinorrhea or sore throat Cardiovascular Cardiovascular: Denies chest pain, orthopnea or racing heartbeat Respiratory/Chest Respiratory/Chest: Denies cough, dyspnea, dyspnea on exertion, orthopnea or sputum Gastrointestinal Gastrointestinal: Denies abdominal pain, diarrhea, nausea or vomiting Genitourinary Genitourinary ED: Denies dysuria, hematuria or urinary frequency Musculoskeletal Musculoskeletal: Denies arthralgias, back pain, myalgias or neck pain Integumentary Denies abscess, Abrasions or rash Neurologic Neurologic: Denies headache(s) or weakness Psychiatric Psychiatric: Denies anxiety, depression or suicidal thoughts Endocrine Endocrinology: Denies polydipsia, polyphagia or polyuria Hematologic/Lymphatic Hematologic/Lymphatic: Denies easy bleeding, easy bruising or lymphadenopathy Allergic/Immunologic Allergic/Immunologic ED: Denies mouth swelling, tongue swelling or urticaria EXAM Physical Exam Const Vital Signs: 02/03/23 15:09 02/03/23 15:12 Temperature 97.3 F L Temperature Source Temporal Pulse Rate 72 Respiratory Rate 18 Respiratory Effort Normal Non-Labored Respiratory Depth Normal Respiratory Pattern Normal Blood Pressure 131/116 H Blood Pressure Mean 121 Pulse Ox 93 Oxygen Delivery Method Room Air Room Air Positive well nourished and well developed General Appearance ED: well developed and NAD HEENT Reports TM's clear and moist mucous membranes HEENT Narrative: New and old ecchymosis to the left frontal and parietal scalp. Small amount of dried blood from the left nasal vault. No septal hematoma. normocephalic and atraumatic; Negative for trauma or tenderness Tympanic Membrane ED: Yes TM's clear Eyes PERRL and EOMs intact bilaterally General Eye ED: Negative for pale conjunctiva or scleral icterus Neck no lymphadenopathy, supple and no JVD General: Negative for tenderness Chest Wall inspection of chest normal and palpation of chest normal Chest: Negative for tenderness Resp normal respiratory effort and clear to auscultation bilaterally Effort and Inspection: Negative for respiratory distress or pain with movement Auscultation: Negative for rhonchi, wheezes or diminished lung sounds Cardio regular rate, regular rhythm, S1 normal heart sound, S2 normal heart sound and no murmurs Peripheral Pulses: pulses 2+ throughout GI normal to inspection, nondistended, normoactive bowel sounds, soft to palpation, non-tender, non-distended and no masses Back/Spine no CVA tenderness and no thoracic nor lumbar tenderness Extremity normal to inspection Extremity Narrative: Moves all extremities without difficulty and no evidence of deformity to upper or lower extremities General Extremety ED: Negative for edema General Extremity: Negative for edema Neuro oriented x3, CN's II-XII intact bilaterally, no sensory deficits noted and gait normal Sensorium / Orientation: awake, alert, oriented to person, oriented to place and oriented to time Motor Exam: strength 5/5 throughout and strength abnormal Psych mental status grossly normal Skin no rashes or lesions noted and no wounds MDM MDM MDM Narrative Medical decision making narrative: Patient with a fall from chair with history of frequent falls per who gives the history. He has not otherwise been ill. He is currently back to his baseline. There was concern of the loss of consciousness for about 3 to 4 minutes. Patient is on hospice. He is DNR. We will obtain a CT scan of the brain and neck to rule out acute injury. These were negative for acute traumatic injury. I also discussed with evaluating some labs and some basic studies given that patient is nonverbal however she states this is his baseline and does not want to pursue anything further. I feel this is certainly reasonable. Radiography Diagnostic Testing: Clinical Impression(s) from Imaging Studies Brain CT 02/03/23 15:19 IMPRESSION: Limited study due to patient''s decreased mobility and suboptimal positioning. There are no gross acute abnormalities identified. There is stable underlying senescent change. Electronically Signed: Milad Emerson MD at 16:22 EDT , Cervical Spine CT 02/03/23 15:19 IMPRESSION: 1. Limited study due to patient''s decreased mobility and suboptimal patient positioning. There are no acute osseous abnormalities. 2. Multilevel degenerative change with disc space narrowing and bony neural foraminal narrowing. Electronically Signed: Milad Emerson MD at 16:24 EDT , Discharge Plan Triage Chief Complaint: Fall ED Provider: Oscar Sandra Dx/Rx/DC Orders Clinical Impression: Closed head injury, Fall Instructions: ED Fall with Uncertain Cause, ED Head Injury (Adult) Prescriptions: No Action amlodipine 5 mg tablet 5 mg PO DAILY omeprazole magnesium 20 mg tablet,delayed release (DR/EC) 20 mg PO DAILY Patient Comments: as directed as directed tamsulosin 0.4 mg capsule 0.4 mg PO DAILY finasteride 5 mg tablet 5 mg PO DAILY meloxicam 15 mg tablet 15 mg PO DAILY PRN (Reason: pain) escitalopram oxalate 10 mg tablet 20 mg PO QHS mirtazapine 15 mg tablet 15 mg PO QHS acetaminophen [Tylenol] 325 mg capsule 500 mg PO TID acetaminophen [Tylenol] 325 mg capsule 650 mg PO ONCE PRN (Reason: Pain) Rx Instructions: Give 2 tablets by mouth every 4 hours as needed for pain loratadine [Claritin] 10 mg Tablet 10 mg PO DAILY polyethylene glycol 3350 [ClearLax] 17 gram powder in packet 17 g PO DAILY quetiapine [Seroquel] 25 mg tablet 25 mg PO QHS quetiapine [Seroquel] 50 mg tablet 50 mg PO BID cholecalciferol (vitamin D3) [Vitamin D3] 50 mcg (2,000 unit) capsule 50,000 unit PO WE lorazepam [Ativan] 0.5 mg tablet 0.5 mg PO Q2H PRN (Reason: anxiety) lorazepam [Ativan] 0.5 mg tablet 0.5 mg PO Q8H carbidopa-levodopa [Sinemet] 25-100 mg tablet 2 tab PO .QID Qty: 240 2RF Primary Care Provider: John Rizo Referrals: John Rizo MD [Primary Care Provider] - 3-5 Days if not improving Disposition Disposition: Home, Self Care Discharge Date/Time: 02/03/23 18:33
--- NOTE | 2023-02-03 16:44 | NURSING ---
CALLED [facility], ETA IS 90 MIN
[2023-02-03 16:59] VITALS: BP 136/75; PULSE 88; RESP 18; O2SAT 93
== END 2023-02-03 18:33 | disposition home or self-care (01) ==
PROVIDERS: Emergency Provider Emergency Medicine; PCP Family Medicine; Visit Provider Emergency Medicine
DX: S09.90XA Unspecified injury of head, initial encounter (principal); G20 Parkinson's disease; F02.80 Dementia in other diseases classified elsewhere, unspecified severity, without behavioral disturbance, psychotic disturbance, mood disturbance, and anxiety; I10 Essential (primary) hypertension; Z51.5 Encounter for palliative care; E78.5 Hyperlipidemia, unspecified; Z87.891 Personal history of nicotine dependence; Z91.81 History of falling; W07.XXXA Fall from chair, initial encounter
CPT/HCPCS: 70450; 72125; 99284